=== PATIENT | female | born 1930 | race Caucasian/White ===

== ENCOUNTER 2018-03-23 13:08 | Inpatient (IN) | payer MEDICARE, BC ==
[2018-03-23] MEDS ORDERED: Sodium Chloride 0.9% 10 ML Syringe FLUSH PRN (14:13)
--- NOTE | 2018-03-23 15:32 | US ---
Right lower extremity deep venous ultrasound: Duplex and color flow imaging was obtained of the right common femoral, proximal greater saphenous, superficial femoral, popliteal, posterior tibial and peroneal veins. Left common femoral vein was also evaluated. Findings: Mild soft tissue edema is seen within the catheter. Normal phasic flow, augmentation and compression is seen. Impression: 1. No evidence of deep venous thrombosis is seen within the right lower extremity or within the left common femoral vein. 2. Mild calf edema. Diagnostic code #2
[2018-03-23] MEDS ORDERED: Sodium Chloride 0.9% 500 ML IV ONE (16:00)
--- NOTE | 2018-03-23 16:14 | EDM.PDOC ---
ED HPI GENERAL MEDICAL PROBLEM - General Chief Complaint: Cardiovascular Problem Stated Complaint: SOB/SWOLLEN/DIZZY Time Seen by Provider: 03/23/18 13:32 Source of Information: Reports: Patient, Family, RN Notes Reviewed - History of Present Illness INITIAL COMMENTS - FREE TEXT/NARRATIVE: 87-year-old female comes in with dyspnea, hypoxia, right chest and right shoulder discomfort. This has become worse today. there is pain of the right shoulder area and right upper chest with deep breathing. She is coughing quite a lot but not "getting anything up". She has had some chills but no definite fever. This has been worsening over the past week but became especially bad today. She is a former smoker having quit about 3 years ago when diagnosed with "bladder cancer". Right Neck Pain Score (Numeric/FACES): 8 - Related Data Allergies Allergy/AdvReac Type Severity Reaction Status Date / Time Cephalosporins Allergy Intermediate Hives Verified 09/19/14 19:57 cefuroxime axetil Allergy Cannot Verified 09/19/14 19:57 [From Ceftin] Remember oxycodone [Oxycodone] Allergy Nausea and Verified 09/19/14 19:57 Vomiting Home Meds: Home Meds Aspirin/Caffeine [Anacin 400-32 mg Tablet] 2 tab PO DAILY 03/23/18 [History] LORazepam 1 mg PO DAILY PRN 03/23/18 [History] Losartan/Hydrochlorothiazide [Hyzaar 100-25 Tablet] 1 each PO DAILY 03/23/18 [ History] Lutein/Minerals/Vit A,C & E [Ocuvite] 1 tab PO DAILY 03/23/18 [History] Metoprolol Succinate [Toprol Xl] 50 mg PO DAILY 03/23/18 [History] Potassium Chloride [Klor-Con Sprinkle] 10 meq PO DAILY 03/23/18 [History] Rosuvastatin [Crestor] 5 mg PO DAILY 03/23/18 [History] amLODIPine Besylate [Norvasc] 10 mg PO DAILY 03/23/18 [History] rOPINIRole HCl [Requip] 0.5 mg PO BEDTIME 03/23/18 [History] Past Medical History Cardiovascular History: Reports: High Cholesterol, Hypertension, Other (See Below) Other Cardiovascular History: carotoid stent right side Psychiatric History: Reports: Anxiety Oncologic (Cancer) History: Reports: Bladder, Other (See Below) Other Oncologic History: skin cancer to the foot; also bladder cancer since 2015 Social & Family History - Tobacco Use Smoking Status *Q: Former Smoker Used Tobacco, but Quit: Yes Month/Year Tobacco Last Used: 2014 - Caffeine Use Caffeine Use: Reports: Coffee, Tea - Recreational Drug Use Recreational Drug Use: No ED ROS GENERAL - Review of Systems Review Of Systems: See Below Constitutional: Reports: Chills. Denies: Fever HEENT: Denies: Rhinitis, Sinus Problem, Throat Pain Respiratory: Reports: Shortness of Breath, Pleuritic Chest Pain, Cough. Denies : Sputum, Hemoptysis Cardiovascular: Reports: Chest Pain (With deep breathing) GI/Abdominal: Denies: Abdominal Pain, Nausea, Vomiting Musculoskeletal: Reports: Neck Pain, Shoulder Pain (Right neck), Other (There is been swelling of her right lower leg worsening over the past several weeks). Denies: Back Pain, Leg Pain Skin: Reports: Other (She is had a small area of ulceration right foot dorsal aspect). Denies: Erythema Neurological: Denies: Numbness, Tingling ED EXAM, GENERAL - Physical Exam Exam: See Below General Appearance: Alert, Mild Distress Eye Exam: Bilateral Eye: PERRL Throat/Mouth: Normal Inspection Respiratory/Chest: Respiratory Distress. No: Rhonchi, Wheezing Cardiovascular: Regular Rate, Rhythm GI/Abdominal: Soft, Non-Tender Back Exam: No: CVA Tenderness (L), CVA Tenderness (R) Extremities: Pedal Edema (Moderate right leg swelling, no warmth or erythema), Other Neurological: Alert, Oriented, No Motor/Sensory Deficits Skin Exam: Warm, Dry, Normal Color Course - Vital Signs Last Recorded V/S: Last Vital Signs Temp 97.9 F 03/23/18 19:44 Pulse 61 03/23/18 19:45 Resp 18 03/23/18 13:24 BP 147/81 H 03/23/18 19:45 Pulse Ox 95 03/23/18 19:45 - Orders/Labs/Meds Orders: Active Orders 24 hr Category Date Time Status Oxygen Therapy [RC] ASDIRECTED Care 03/23/18 14:14 Active Peripheral IV Care [RC] Q2HR Care 03/23/18 14:15 Active Ang Chest [CT] Stat Exams 03/23/18 16:14 Taken Chest 1V Frontal [CR] Stat Exams 03/23/18 15:29 Taken Sodium Chloride 0.9% [Normal Saline] 100 ml Med 03/23/18 16:30 Active IV ASDIRECTED Sodium Chloride 0.9% [Saline Flush] Med 03/23/18 14:13 Active 10 ml FLUSH ASDIRECTED PRN Peripheral IV Insertion Adult [OM.PC] Stat Oth 03/23/18 14:14 Ordered EKG 12 Lead [EK] Stat Ther 03/23/18 13:39 Ordered Medication Orders Acetaminophen (Tylenol) 650 mg PO Q4H PRN PRN Reason: Pain (Mild 1-3)/fever Hydrocodone Bitart/Acetaminophen ([place] 325-5 Mg) 1 tab PO Q4H PRN PRN Reason: Pain (moderate 4-6) Last Admin: 03/23/18 20:12 Dose: 1 tab Albuterol/Ipratropium (Duoneb 3.0-0.5 Mg/3 Ml) 3 ml NEB Q4H PRN PRN Reason: Shortness Of Breath/wheezing Amlodipine Besylate (Norvasc) 10 mg PO DAILY YOGESH Apixaban (Eliquis) 5 mg PO BID YOGESH Apixaban (Eliquis) 10 mg PO BID YOGESH Stop: 03/30/18 21:01 Apixaban (Eliquis) 5 mg PO BID YOGESH Bisacodyl (Dulcolax) 5 mg PO DAILY PRN PRN Reason: Constipation Docusate Sodium (Colace) 100 mg PO BID PRN PRN Reason: Constipation Enoxaparin Sodium (Lovenox) 60 mg SUBCUT ONETIME ONE Stop: 03/23/18 21:01 Hydralazine HCl (Apresoline) 20 mg IVPUSH Q4H PRN PRN Reason: Hypertension Hydrochlorothiazide (Hydrochlorothiazide) 25 mg PO DAILY YOGESH Hydromorphone HCl (Dilaudid) 0.25 mg IVPUSH Q2H PRN PRN Reason: Pain (severe 7-10) Sodium Chloride (Normal Saline) 100 mls @ 60 mls/hr IV ASDIRECTED YOGESH Last Admin: 03/23/18 16:37 Dose: 60 mls/hr Promethazine HCl 6.25 mg/ (Sodium Chloride) 50.25 mls @ 100 mls/hr IV Q6H PRN PRN Reason: Nausea/Vomiting Lorazepam (Ativan) 1 mg PO DAILY PRN PRN Reason: Anxiety Lorazepam (Ativan) 2 mg IVPUSH Q4H PRN PRN Reason: Seizures Lorazepam (Ativan) 0.25 mg IV Q6H PRN PRN Reason: Anxiety Losartan Potassium (Cozaar) 100 mg PO DAILY [facility] Magnesium Sulfate (Pharmacy To Dose - Magnesium Replacement) 1 dose .XX ASDIRECTED [facility] Metoprolol Succinate (Toprol Xl) 50 mg PO DAILY [facility] Metoprolol Tartrate (Lopressor) 5 mg IVPUSH Q4H PRN PRN Reason: Tachycardia Non-Formulary Medication (Aspirin/Caffeine [Anacin 400-32 Mg Tablet]) 2 tab PO DAILY [facility] Ondansetron HCl (Zofran) 4 mg IV Q6H PRN PRN Reason: Nausea/Vomiting Polyethylene Glycol (Miralax) 17 gm PO DAILY PRN PRN Reason: Constipation Potassium Chloride (Klor-Con 10) 10 meq PO DAILY [facility] Potassium Chloride (Pharmacy To Dose - Potassium Replacement) 1 dose .XX ASDIRECTED [facility] Potassium Chloride (Klor-Con M20) 40 meq PO Q4H [facility] Stop: 03/23/18 23:31 Last Admin: 03/23/18 20:11 Dose: 40 meq Ropinirole HCl (Requip) 0.5 mg PO BEDTIME [facility] Last Admin: 03/23/18 20:10 Dose: 0.5 mg Rosuvastatin Calcium (Crestor) 5 mg PO DAILY [facility] Senna/Docusate Sodium (Senna Plus) 1 tab PO BID PRN PRN Reason: Constipation Sodium Chloride (Saline Flush) 10 ml FLUSH ASDIRECTED PRN PRN Reason: Keep Vein Open Last Admin: 03/23/18 14:34 Dose: 10 ml Temazepam (Restoril) 7.5 mg PO BEDTIME PRN PRN Reason: Sleep Vit A/Vit C/Vit E/Selen/Cu/Zn/Lutei (Icaps Mv) 1 tab PO DAILY [facility] Labs: Laboratory Tests 03/23/18 03/23/18 03/23/18 Range/Units 13:15 13:15 13:15 WBC 7.47 (3.98-10.04) K/mm3 RBC 4.66 (3.98-5.22) M/mm3 Hgb 14.1 (11.2-15.7) gm/L Hct 40.7 (34.1-44.9) % MCV 87.3 (79.4-94.8) fl MCH 30.3 (25.6-32.2) pg MCHC 34.6 (32.2-35.5) g/dl RDW Std Deviation 48.5 H (36.4-46.3) fL Plt Count 207 (182-369) K/mm3 MPV 9.6 (9.4-12.3) fl Neut % (Auto) 68.1 (34.0-71.1) % Lymph % (Auto) 21.7 (19.3-51.7) % [place] % (Auto) 9.2 (4.7-12.5) % Eos % (Auto) 0.3 L (0.7-5.8) Baso % (Auto) 0.4 (0.1-1.2) % Neut # (Auto) 5.09 (1.56-6.13) K/mm3 Lymph # (Auto) 1.62 (1.18-3.74) K/mm3 [place] # (Auto) 0.69 H (0.24-0.36) K/mm3 Eos # (Auto) 0.02 L (0.04-0.36) K/mm3 Baso # (Auto) 0.03 (0.01-0.08) K/mm3 PT (9.5-12.1) SECONDS INR D-Dimer, Quantitative 3.28 H (0.19-0.50) mg/L Sodium (136-145) mEq/L Potassium (3.5-5.1) mEq/L Chloride (98-107) mEq/L Carbon Dioxide (21-32) mEq/L Anion Gap (5-15) BUN (7-18) mg/dL Creatinine (0.55-1.02) mg/dL Est Cr Clr Drug Dosing mL/min Estimated GFR (MDRD) (>60) mL/min BUN/Creatinine Ratio (14-18) Glucose (83-115) mg/dL Calcium (8.5-10.1) mg/dL Total Bilirubin (0.2-1.0) mg/dL AST (15-37) U/L ALT (14-59) U/L Alkaline Phosphatase (46-116) U/L Troponin I (0.00-0.056) ng/mL C-Reactive Protein 1.9 H* (<1.0) mg/dL NT-Pro-B Natriuret Pep (0-450) pg/mL Total Protein (6.4-8.2) g/dl Albumin (3.4-5.0) g/dl Globulin gm/dL Albumin/Globulin Ratio (1-2) 03/23/18 03/23/18 03/23/18 Range/Units 13:15 13:15 13:15 WBC (3.98-10.04) K/mm3 RBC (3.98-5.22) M/mm3 Hgb (11.2-15.7) gm/L Hct (34.1-44.9) % MCV (79.4-94.8) fl MCH (25.6-32.2) pg MCHC (32.2-35.5) g/dl RDW Std Deviation (36.4-46.3) fL Plt Count (182-369) K/mm3 MPV (9.4-12.3) fl Neut % (Auto) (34.0-71.1) % Lymph % (Auto) (19.3-51.7) % [place] % (Auto) (4.7-12.5) % Eos % (Auto) (0.7-5.8) Baso % (Auto) (0.1-1.2) % Neut # (Auto) (1.56-6.13) K/mm3 Lymph # (Auto) (1.18-3.74) K/mm3 [place] # (Auto) (0.24-0.36) K/mm3 Eos # (Auto) (0.04-0.36) K/mm3 Baso # (Auto) (0.01-0.08) K/mm3 PT 12.5 H (9.5-12.1) SECONDS INR 1.15 D-Dimer, Quantitative (0.19-0.50) mg/L Sodium 131 L (136-145) mEq/L Potassium 3.4 L (3.5-5.1) mEq/L Chloride 96 L (98-107) mEq/L Carbon Dioxide 19 L (21-32) mEq/L Anion Gap 19.4 H (5-15) BUN 34 H (7-18) mg/dL Creatinine 1.1 H (0.55-1.02) mg/dL Est Cr Clr Drug Dosing 31.81 mL/min Estimated GFR (MDRD) 47 (>60) mL/min BUN/Creatinine Ratio 30.9 H (14-18) Glucose 108 (83-115) mg/dL Calcium 8.9 (8.5-10.1) mg/dL Total Bilirubin 1.1 H (0.2-1.0) mg/dL AST 47 H (15-37) U/L ALT 44 (14-59) U/L Alkaline Phosphatase 98 (46-116) U/L Troponin I 0.064 H* (0.00-0.056) ng/mL C-Reactive Protein (<1.0) mg/dL NT-Pro-B Natriuret Pep 2757 H (0-450) pg/mL Total Protein 6.8 (6.4-8.2) g/dl Albumin 3.2 L (3.4-5.0) g/dl Globulin 3.6 gm/dL Albumin/Globulin Ratio 0.9 L (1-2) Meds: Medications Generic Name Dose Route Start Last Admin Trade Name Freq PRN Reason Stop Dose Admin Acetaminophen 650 mg 03/23/18 19:07 Tylenol PO Q4H PRN Pain (Mild 1-3)/fever Hydrocodone Bitart/Acetaminophen 1 tab 03/23/18 19:07 03/23/18 20:12 [place] 325-5 Mg PO 1 tab Q4H PRN Administration Pain (moderate 4-6) Albuterol/Ipratropium 3 ml 03/23/18 19:07 Duoneb 3.0-0.5 Mg/3 Ml NEB Q4H PRN Shortness Of Breath/wheezing Amlodipine Besylate 10 mg 03/24/18 09:00 Norvasc PO DAILY YOGESH Apixaban 5 mg 03/31/18 09:00 Eliquis PO BID YOGESH Apixaban 10 mg 03/24/18 09:00 Eliquis PO 03/30/18 21:01 BID YOGESH Apixaban 5 mg 03/31/18 09:00 Eliquis PO BID YOGESH Bisacodyl 5 mg 03/23/18 19:07 Dulcolax PO DAILY PRN Constipation Docusate Sodium 100 mg 03/23/18 19:07 Colace PO BID PRN Constipation Enoxaparin Sodium 60 mg 03/23/18 21:00 Lovenox SUBCUT 03/23/18 21:01 ONETIME ONE Hydralazine HCl 20 mg 03/23/18 19:04 Apresoline IVPUSH Q4H PRN Hypertension Hydrochlorothiazide 25 mg 03/24/18 09:00 Hydrochlorothiazide PO DAILY YOGESH Hydromorphone HCl 0.25 mg 03/23/18 19:07 Dilaudid IVPUSH Q2H PRN Pain (severe 7-10) Sodium Chloride 100 mls @ 60 mls/hr 03/23/18 16:30 03/23/18 16:37 Normal Saline IV 60 mls/hr ASDIRECTED [facility] Administration Promethazine HCl 6.25 mg/ 50.25 mls @ 100 mls/hr 03/23/18 19:07 Sodium Chloride IV Q6H PRN Nausea/Vomiting Lorazepam 1 mg 03/23/18 19:03 Ativan PO DAILY PRN Anxiety Lorazepam 2 mg 03/23/18 19:04 Ativan IVPUSH Q4H PRN Seizures Lorazepam 0.25 mg 03/23/18 19:07 Ativan IV Q6H PRN Anxiety Losartan Potassium 100 mg 03/24/18 09:00 Cozaar PO DAILY [facility] Magnesium Sulfate 1 dose 03/23/18 19:15 Pharmacy To Dose - Magnesium Replacement .XX ASDIRECTED [facility] Metoprolol Succinate 50 mg 03/24/18 09:00 Toprol Xl PO DAILY [facility] Metoprolol Tartrate 5 mg 03/23/18 19:04 Lopressor IVPUSH Q4H PRN Tachycardia Non-Formulary Medication 2 tab 03/24/18 09:00 Aspirin/Caffeine [Anacin 400-32 Mg Tablet] PO DAILY [facility] Ondansetron HCl 4 mg 03/23/18 19:07 Zofran IV Q6H PRN Nausea/Vomiting Polyethylene Glycol 17 gm 03/23/18 19:07 Miralax PO DAILY PRN Constipation Potassium Chloride 10 meq 03/24/18 09:00 Klor-Con 10 PO DAILY [facility] Potassium Chloride 1 dose 03/23/18 19:15 Pharmacy To Dose - Potassium Replacement .XX ASDIRECTED [facility] Potassium Chloride 40 meq 03/23/18 19:30 03/23/18 20:11 Klor-Con M20 PO 03/23/18 23:31 40 meq Q4H YOGESH Administration Ropinirole HCl 0.5 mg 03/23/18 21:00 03/23/18 20:10 Requip PO 0.5 mg BEDTIME YOGESH Administration Rosuvastatin Calcium 5 mg 03/24/18 09:00 Crestor PO DAILY YOGESH Senna/Docusate Sodium 1 tab 03/23/18 19:07 Senna Plus PO BID PRN Constipation Sodium Chloride 10 ml 03/23/18 14:13 03/23/18 14:34 Saline Flush FLUSH 10 ml ASDIRECTED PRN Administration Keep Vein Open Temazepam 7.5 mg 03/23/18 19:07 Restoril PO BEDTIME PRN Sleep Vit A/Vit C/Vit E/Selen/Cu/Zn/Lutei 1 tab 03/24/18 09:00 Icaps Mv PO DAILY YOGESH Discontinued Medications Generic Name Dose Route Start Last Admin Trade Name Freq PRN Reason Stop Dose Admin Apixaban 10 mg 03/23/18 21:00 Eliquis PO 03/30/18 09:01 BID YOGESH Apixaban 10 mg 03/24/18 21:00 Eliquis PO 03/31/18 09:01 BID YOGESH Sodium Chloride 500 mls @ 999 mls/hr 03/23/18 16:00 03/23/18 16:44 Normal Saline IV 03/23/18 16:30 999 mls/hr .BOLUS ONE Administration Iopamidol 100 ml 03/23/18 16:19 03/23/18 16:37 Isovue-370 (76%) IVPUSH 03/23/18 16:20 80 ml ONETIME ONE Administration Sodium Chloride 10 ml 03/23/18 16:19 03/23/18 16:37 Saline Flush FLUSH 03/23/18 16:20 10 ml ONETIME ONE Administration - Re-Assessments/Exams Free Text/Narrative Re-Assessment/Exam: 03/23/18 18:17 Chest x-ray did show right pleural effusion no apparent infiltrate, moderate cardiomegaly, d-dimer did come back elevated. Ultrasound of right lower leg was negative for DVT. CT pulmonary angiogram has been done with multiple abnormal findings including filling defect middle lobe segmental pulmonary artery on the right. Also quite marked dilatation of the right atrium noted, also progressive interval enlargement of a nodule left upper lobe. See radiology report for details. I discussed this with Dr. Fernandez our Hospitalist who will see patient at this time. Departure - Departure Time of Disposition: 18:00 Disposition: Admitted As Inpatient 65 Condition: Serious Clinical Impression: Hypoxia Pulmonary embolism Qualifiers: Pulmonary embolism type: other Chronicity: acute COPD (chronic obstructive pulmonary disease) Qualifiers: COPD type: unspecified COPD Qualified Code(s): J44.9 - Chronic obstructive pulmonary disease, unspecified ED Communication - Discussed Case With (1) Discussed Case With (1): Admitting Provider (Dr Fernandez, decision to admit at about 18:15.) - My Orders Last 24 Hours: My Active Orders 03/23/18 13:39 EKG 12 Lead [EK] Stat 03/23/18 14:13 Sodium Chloride 0.9% [Saline Flush] 10 ml FLUSH ASDIRECTED PRN 03/23/18 14:14 Oxygen Therapy [RC] ASDIRECTED Peripheral IV Insertion Adult [OM.PC] Stat 03/23/18 14:15 Peripheral IV Care [RC] Q2HR 03/23/18 15:29 Chest 1V Frontal [CR] Stat 03/23/18 16:14 Ang Chest [CT] Stat 03/23/18 16:30 Sodium Chloride 0.9% [Normal Saline] 100 ml IV ASDIRECTED - Assessment/Plan Last 24 Hours: My Active Orders 03/23/18 13:39 EKG 12 Lead [EK] Stat 03/23/18 14:13 Sodium Chloride 0.9% [Saline Flush] 10 ml FLUSH ASDIRECTED PRN 03/23/18 14:14 Oxygen Therapy [RC] ASDIRECTED Peripheral IV Insertion Adult [OM.PC] Stat 03/23/18 14:15 Peripheral IV Care [RC] Q2HR 03/23/18 15:29 Chest 1V Frontal [CR] Stat 03/23/18 16:14 Ang Chest [CT] Stat 03/23/18 16:30 Sodium Chloride 0.9% [Normal Saline] 100 ml IV ASDIRECTED
[2018-03-23] MEDS ORDERED: Iopamidol 755 Mg/ML 100 ML Bottle IVPUSH ONE (16:19)
[2018-03-23] MEDS ORDERED: Sodium Chloride 0.9% 10 ML Syringe FLUSH ONE (16:19)
[2018-03-23] MEDS ORDERED: Sodium Chloride 0.9% 100 ML IV SCH (16:30)
[2018-03-23] MEDS ORDERED: hydrALAZINE 20 MG/ML SDV IVPUSH PRN (19:04)
[2018-03-23] MEDS ORDERED: LORazepam 2 MG/ML SDV IVPUSH PRN (19:04)
[2018-03-23] MEDS ORDERED: Metoprolol Tartrate 5 MG/5 ML SDV IVPUSH PRN (19:04)
[2018-03-23] MEDS ORDERED: Bisacodyl 5 MG Tab PO PRN (19:07)
[2018-03-23] MEDS ORDERED: HYDROmorphone 0.5 MG/0.5 ML SYRINGE IVPUSH PRN (19:07)
[2018-03-23] MEDS ORDERED: LORazepam 2 MG/ML SDV IV PRN (19:07)
[2018-03-23] MEDS ORDERED: Albuterol/Ipratropium 3.0-0.5 MG/3 ML Neb Soln NEB PRN (19:07)
[2018-03-23] MEDS ORDERED: Promethazine 6.25 MG in Sodium Chloride 0.9% 50 ML IV PRN (19:07)
[2018-03-23] MEDS ORDERED: Acetaminophen 325 MG Tab PO PRN (19:07)
[2018-03-23] MEDS ORDERED: Docusate Sodium 100 MG Cap PO PRN (19:07)
[2018-03-23] MEDS ORDERED: Ondansetron 4 MG/2 ML SDV IV PRN (19:07)
[2018-03-23] MEDS ORDERED: Polyethylene Glycol 3350 Powder 17 GM Packet PO PRN (19:07)
[2018-03-23] MEDS ORDERED: Temazepam 7.5 MG Cap PO PRN (19:07)
--- NOTE | 2018-03-23 19:53 | PCM.HP ---
H&P History of Present Illness - General Date of Service: 03/23/18 Admit Problem/Dx: Admission Diagnosis/Problem Admission Diagnosis/Problem Pulmonary embolism Source of Information: Patient, Family, Provider, RN Notes Reviewed History Limitations: Reports: Respiratory Distress - History of Present Illness Initial Comments - Free Text/Narative: This is an 87 yo elderly white female with past medical hx/o HTN, HLD, Carotid Stenosis S/p Stent Placement, Hx/o Bladder CA, Hx/o Skin CA S/p Surgical Resection, Chronic Leg Edema and Emphysema with hx/o Smoking who comes in with complaints of worsening dyspnea, hypoxia, dry cough, and pleuritic pain with radiation to the right shoulder. She denies any fever but reports some chills. She states her symptoms have been getting worse in the past week but worse today. Patient carries a history of smoking cigarettes but quit 3 years ago when she was diagnosed with bladder cancer. Recently, she underwent surgical resection of a skin cancer on her lower extremity. Her initial workup in the emergency department shows a fairly unremarkable CBC. Her coagulation studies however show PT of 12.5, INR of 1.15, and d-dimer of 3.28. Her chemistry is significant for sodium of 34, creatinine of 1.1, total bilirubin of 1.1, AST of 47, initial troponin of 0.064, CRP of 1.9, proBNP of 2757, and albumin of 3.2. Her duplex ultrasound studies show no evidence of deep venous the within the right lower extremity or within the left common femoral vein. Mild calf edema noted. Her chest CT scan report reads interval development of a moderate right and small left pleural effusion. Filling defect in the middle lobe segmental pulmonary artery. Marked dilatation of the right atrium measuring 9 cm in the maximum diameter. No significant dilatation of the right ventricle. Contrast flexures into a dilated IVC and hepatic veins as well as the SVC and tributaries. Progressive fibrotic change both apices. Progressive changes of centrilobular emphysema and Minimal interval enlargement of a nodule in the left upper lobe. Patient is being admitted primarily for medical treatment of PE and Acute Congestive Heart Failure. She is DNR/DNI. Right Neck Pain Score (Numeric/FACES): 8 - Related Data Allergies/Adverse Reactions: Allergies Allergy/AdvReac Type Severity Reaction Status Date / Time Cephalosporins Allergy Intermediate Hives Verified 02/20/15 19:57 cefuroxime axetil Allergy Cannot Verified 09/19/14 19:57 [From Ceftin] Remember oxycodone [Oxycodone] Allergy Nausea and Verified 09/19/14 19:57 Vomiting Home Medications: Home Meds Aspirin/Caffeine [Anacin 400-32 mg Tablet] 2 tab PO DAILY 03/23/18 [History] LORazepam 1 mg PO DAILY PRN 03/23/18 [History] Losartan/Hydrochlorothiazide [Hyzaar 100-25 Tablet] 1 each PO DAILY 03/23/18 [ History] Lutein/Minerals/Vit A,C & E [Ocuvite] 1 tab PO DAILY 03/23/18 [History] Metoprolol Succinate [Toprol Xl] 50 mg PO DAILY 03/23/18 [History] Potassium Chloride [Klor-Con Sprinkle] 10 meq PO DAILY 03/23/18 [History] Rosuvastatin [Crestor] 5 mg PO DAILY 03/23/18 [History] amLODIPine Besylate [Norvasc] 10 mg PO DAILY 03/23/18 [History] rOPINIRole HCl [Requip] 0.5 mg PO BEDTIME 03/23/18 [History] Doxycycline [Vibramycin] 1 tab PO BID 03/24/18 [History] Past Medical History Cardiovascular History: Reports: High Cholesterol, Hypertension, Other (See Below) Other Cardiovascular History: carotoid stent right side Psychiatric History: Reports: Anxiety Oncologic (Cancer) History: Reports: Bladder, Other (See Below) Other Oncologic History: skin cancer to the foot; also bladder cancer since 2014 Social & Family History - Tobacco Use Smoking Status *Q: Former Smoker Used Tobacco, but Quit: Yes Month/Year Tobacco Last Used: 2014 - Caffeine Use Caffeine Use: Reports: Coffee, Tea - Recreational Drug Use Recreational Drug Use: No H&P Review of Systems - Review of Systems: Review Of Systems: ROS reveals no pertinent complaints other than HPI. Exam - Exam Exam: See Below - Vital Signs Vital Signs: Last Vital Signs Temp 36.9 C 03/23/18 13:24 Pulse 62 03/23/18 13:24 Resp 18 03/23/18 13:24 BP 152/77 H 03/23/18 13:24 Pulse Ox 94 L 03/23/18 18:30 Weight: 63.503 kg - Exam Quality Assessment: Supplemental Oxygen General: Alert, Cooperative, Other (Comfortable). No: Mild Distress HEENT: Conjunctiva Clear, EOMI, Hearing Intact, Mucosa Moist & [place], Nares Patent, Normal Nasal Septum, Posterior Pharynx Clear, Pupils Equal, Pupils Reactive Neck: Supple, Trachea Midline, +2 Carotid Pulse wo Bruit. No: Thyromegaly Lungs: Normal Respiratory Effort, Decreased Breath Sounds (on the bases R>>L) Cardiovascular: Regular Rate, Regular Rhythm GI/Abdominal Exam: Normal Bowel Sounds, Soft, Non-Tender, No Organomegaly, No Distention, No Abnormal Bruit (Female) Exam: Deferred Rectal (Female) Exam: Deferred Back Exam: Normal Inspection, Decreased Range of Motion Extremities: Normal Inspection, Normal Range of Motion, Non-Tender, Normal Capillary Refill, Other (leg edema). No: Slow Capillary Refill, Arm Pain, Mojgan 's Sign, Leg Pain, Limited Range of Motion, Increased Warmth, Mottled, Pallor, Redness Peripheral Pulses: 2+: Posterior Tibial (L), Posterior Tibial (R), Dorsalis Pedis (L), Dorsalis Pedis (R) Skin: Warm, Dry, Intact Neuro Extensive - Mental Status: Oriented x3, Normal Cognition, Memory Intact Neuro Extensive - Motor, Sensory, Reflexes: CN II-XII Intact (limited due to pain/discomfort but otherwise grossly intact). No: Abnormal Gait Psychiatric: Alert, Normal Affect, Normal Mood - Patient Data Lab Results Last 24 hrs: Laboratory Results - last 24 hr 03/23/18 03/23/18 03/23/18 Range/Units 13:15 13:15 13:15 WBC 7.47 (3.98-10.04) K/mm3 RBC 4.66 (3.98-5.22) M/mm3 Hgb 14.1 (11.2-15.7) gm/L Hct 40.7 (34.1-44.9) % MCV 87.3 (79.4-94.8) fl MCH 30.3 (25.6-32.2) pg MCHC 34.6 (32.2-35.5) g/dl RDW Std Deviation 48.5 H (36.4-46.3) fL Plt Count 207 (182-369) K/mm3 MPV 9.6 (9.4-12.3) fl Neut % (Auto) 68.1 (34.0-71.1) % Lymph % (Auto) 21.7 (19.3-51.7) % [place] % (Auto) 9.2 (4.7-12.5) % Eos % (Auto) 0.3 L (0.7-5.8) Baso % (Auto) 0.4 (0.1-1.2) % Neut # (Auto) 5.09 (1.56-6.13) K/mm3 Lymph # (Auto) 1.62 (1.18-3.74) K/mm3 [place] # (Auto) 0.69 H (0.24-0.36) K/mm3 Eos # (Auto) 0.02 L (0.04-0.36) K/mm3 Baso # (Auto) 0.03 (0.01-0.08) K/mm3 PT (9.5-12.1) SECONDS INR D-Dimer, Quantitative 3.28 H (0.19-0.50) mg/L Sodium (136-145) mEq/L Potassium (3.5-5.1) mEq/L Chloride (98-107) mEq/L Carbon Dioxide (21-32) mEq/L Anion Gap (5-15) BUN (7-18) mg/dL Creatinine (0.55-1.02) mg/dL Est Cr Clr Drug Dosing mL/min Estimated GFR (MDRD) (>60) mL/min BUN/Creatinine Ratio (14-18) Glucose (83-115) mg/dL Calcium (8.5-10.1) mg/dL Total Bilirubin (0.2-1.0) mg/dL AST (15-37) U/L ALT (14-59) U/L Alkaline Phosphatase (46-116) U/L Troponin I (0.00-0.056) ng/mL C-Reactive Protein 1.9 H* (<1.0) mg/dL NT-Pro-B Natriuret Pep (0-450) pg/mL Total Protein (6.4-8.2) g/dl Albumin (3.4-5.0) g/dl Globulin gm/dL Albumin/Globulin Ratio (1-2) 03/23/18 03/23/18 03/23/18 Range/Units 13:15 13:15 13:15 WBC (3.98-10.04) K/mm3 RBC (3.98-5.22) M/mm3 Hgb (11.2-15.7) gm/L Hct (34.1-44.9) % MCV (79.4-94.8) fl MCH (25.6-32.2) pg MCHC (32.2-35.5) g/dl RDW Std Deviation (36.4-46.3) fL Plt Count (182-369) K/mm3 MPV (9.4-12.3) fl Neut % (Auto) (34.0-71.1) % Lymph % (Auto) (19.3-51.7) % [place] % (Auto) (4.7-12.5) % Eos % (Auto) (0.7-5.8) Baso % (Auto) (0.1-1.2) % Neut # (Auto) (1.56-6.13) K/mm3 Lymph # (Auto) (1.18-3.74) K/mm3 [place] # (Auto) (0.24-0.36) K/mm3 Eos # (Auto) (0.04-0.36) K/mm3 Baso # (Auto) (0.01-0.08) K/mm3 PT 12.5 H (9.5-12.1) SECONDS INR 1.15 D-Dimer, Quantitative (0.19-0.50) mg/L Sodium 131 L (136-145) mEq/L Potassium 3.4 L (3.5-5.1) mEq/L Chloride 96 L (98-107) mEq/L Carbon Dioxide 19 L (21-32) mEq/L Anion Gap 19.4 H (5-15) BUN 34 H (7-18) mg/dL Creatinine 1.1 H (0.55-1.02) mg/dL Est Cr Clr Drug Dosing 31.81 mL/min Estimated GFR (MDRD) 47 (>60) mL/min BUN/Creatinine Ratio 30.9 H (14-18) Glucose 108 (83-115) mg/dL Calcium 8.9 (8.5-10.1) mg/dL Total Bilirubin 1.1 H (0.2-1.0) mg/dL AST 47 H (15-37) U/L ALT 44 (14-59) U/L Alkaline Phosphatase 98 (46-116) U/L Troponin I 0.064 H* (0.00-0.056) ng/mL C-Reactive Protein (<1.0) mg/dL NT-Pro-B Natriuret Pep 2757 H (0-450) pg/mL Total Protein 6.8 (6.4-8.2) g/dl Albumin 3.2 L (3.4-5.0) g/dl Globulin 3.6 gm/dL Albumin/Globulin Ratio 0.9 L (1-2) Result Diagrams: 03/24/18 06:55 03/24/18 06:55 Problem List Initiated/Reviewed/Updated: Yes Orders Last 24hrs: Active Orders 24 hr Category Date Time Status Admission Status [Patient Status] [ADT] Routine ADT 03/23/18 18:22 Active Height and Weight [RC] DAILY Care 03/23/18 19:07 Active Incentive Spirometry [RT Incentive Spirometry] [RC] Care 03/23/18 19:10 Active Q2HWA Intake and Output [RC] QSHIFT Care 03/23/18 19:08 Active Oxygen Therapy [RC] ASDIRECTED Care 03/23/18 14:14 Active Oxygen Therapy [RC] PRN Care 03/23/18 19:07 Active Peripheral IV Care [RC] Q2HR Care 03/23/18 14:15 Active Pulse Oximetry [RC] PRN Care 03/23/18 19:08 Active RT Aerosol Therapy [RC] ASDIRECTED Care 03/23/18 19:09 Active Up With Assistance [RC] ASDIRECTED Care 03/23/18 19:07 Active Up ad Neetu [RC] ASDIRECTED Care 03/23/18 19:07 Active VTE/DVT Education [RC] PER UNIT ROUTINE Care 03/23/18 19:07 Active Vital Signs [RC] Q4H Care 03/23/18 19:07 Active Consult to Case Management [CONS] Routine Cons 03/23/18 19:07 Active Consult to Ux Specialist [CONS] Routine Cons 03/23/18 19:07 Active Consult to Spiritual Care [CONS] Routine Cons 03/23/18 19:07 Active Respiratory Care Assess and Treatment [CONS] Routine Cons 03/23/18 19:07 Active Regular Diet [DIET] Diet 03/23/18 Dinner Active Ang Chest [CT] Stat Exams 03/23/18 16:14 Taken Chest 1V Frontal [CR] Stat Exams 03/23/18 15:29 Taken BASIC METABOLIC PANEL,BMP [CHEM] AM Lab 03/24/18 05:11 Ordered BASIC METABOLIC PANEL,BMP [CHEM] AM Lab 03/25/18 05:11 Ordered BASIC METABOLIC PANEL,BMP [CHEM] AM Lab 03/26/18 05:11 Ordered CBC WITH AUTO DIFF [HEME] AM Lab 03/24/18 05:11 Ordered MAGNESIUM [CHEM] AM Lab 03/24/18 05:11 Ordered MAGNESIUM [CHEM] AM Lab 03/25/18 05:11 Ordered MAGNESIUM [CHEM] AM Lab 03/26/18 05:11 Ordered Acetaminophen [Tylenol] Med 03/23/18 19:07 Active 650 mg PO Q4H PRN Acetaminophen/HYDROcodone [[place] 325-5 MG] Med 03/23/18 19:07 Active 1 tab PO Q4H PRN Albuterol/Ipratropium [DuoNeb 3.0-0.5 MG/3 ML] Med 03/23/18 19:07 Active 3 ml NEB Q4H PRN Apixaban [Eliquis] Med 03/23/18 21:00 Active 10 mg PO BID Apixaban [Eliquis] Med 03/30/18 21:00 Active 5 mg PO BID Aspirin/Caffeine [Anacin 400-32 mg Tablet] Med 03/24/18 09:00 Pending 2 tab PO DAILY Bisacodyl [Dulcolax] Med 03/23/18 19:07 Active 5 mg PO DAILY PRN Docusate Sodium [Colace] Med 03/23/18 19:07 Active 100 mg PO BID PRN Docusate Sodium/Sennosides [Senna Plus] Med 03/23/18 19:07 Active 1 tab PO BID PRN HYDROmorphone [Dilaudid] Med 03/23/18 19:07 Active 0.25 mg IVPUSH Q2H PRN LORazepam [Ativan] Med 03/23/18 19:07 Active 0.25 mg IV Q6H PRN LORazepam [Ativan] Med 03/23/18 19:03 Active 1 mg PO DAILY PRN LORazepam [Ativan] Med 03/23/18 19:04 Active 2 mg IVPUSH Q4H PRN Losartan [Cozaar] Med 03/24/18 09:00 Active 100 mg PO DAILY Magnesium Rep Pharmacy to Dose [Pharmacy to Dose - Med 03/23/18 19:15 Pending Magnesium Replacement] 1 dose .XX ASDIRECTED Metoprolol Succinate [Toprol XL] Med 03/24/18 09:00 Active 50 mg PO DAILY Metoprolol Tartrate [Lopressor] Med 03/23/18 19:04 Active 5 mg IVPUSH Q4H PRN Multivitamins/Min/FA/Lut/Zeax [ICaps MV] Med 03/24/18 09:00 Active 1 tab PO DAILY Ondansetron [Zofran] Med 03/23/18 19:07 Active 4 mg IV Q6H PRN Polyethylene Glycol 3350 [MiraLAX] Med 03/23/18 19:07 Active 17 gm PO DAILY PRN Potassium Chloride [Klor-Con 10] Med 03/24/18 09:00 Active 10 meq PO DAILY Potassium Chloride [Klor-Con M20] Med 03/23/18 19:30 Active 40 meq PO Q4H Potassium Rep Pharmacy to Dose [Pharmacy to Dose - Med 03/23/18 19:15 Pending Potassium Replacement] 1 dose .XX ASDIRECTED Promethazine [Phenergan] 6.25 mg Med 03/23/18 19:07 Active Sodium Chloride 0.9% [Normal Saline] 50 ml IV Q6H Rosuvastatin [Crestor] Med 03/24/18 09:00 Active 5 mg PO DAILY Sodium Chloride 0.9% [Normal Saline] 100 ml Med 03/23/18 16:30 Active IV ASDIRECTED Sodium Chloride 0.9% [Saline Flush] Med 03/23/18 14:13 Active 10 ml FLUSH ASDIRECTED PRN Temazepam [Restoril] Med 03/23/18 19:07 Active 7.5 mg PO BEDTIME PRN amLODIPine [Norvasc] Med 03/24/18 09:00 Active 10 mg PO DAILY hydrALAZINE [Apresoline] Med 03/23/18 19:04 Active 20 mg IVPUSH Q4H PRN hydroCHLOROthiazide Med 03/24/18 09:00 Active 25 mg PO DAILY rOPINIRole [Requip] Med 03/23/18 21:00 Active 0.5 mg PO BEDTIME Peripheral IV Insertion Adult [OM.PC] Stat Oth 03/23/18 14:14 Ordered Resuscitation Status Routine Resus Stat 03/23/18 19:07 Ordered EKG 12 Lead [EK] Stat Ther 03/23/18 13:39 Ordered Medication Orders Acetaminophen (Tylenol) 650 mg PO Q4H PRN PRN Reason: Pain (Mild 1-3)/fever Hydrocodone Bitart/Acetaminophen ([place] 325-5 Mg) 1 tab PO Q4H PRN PRN Reason: Pain (moderate 4-6) Albuterol/Ipratropium (Duoneb 3.0-0.5 Mg/3 Ml) 3 ml NEB Q4H PRN PRN Reason: Shortness Of Breath/wheezing Amlodipine Besylate (Norvasc) 10 mg PO DAILY [facility] Apixaban (Eliquis) 10 mg PO BID [facility] Stop: 03/30/18 09:01 Apixaban (Eliquis) 5 mg PO BID [facility] Bisacodyl (Dulcolax) 5 mg PO DAILY PRN PRN Reason: Constipation Docusate Sodium (Colace) 100 mg PO BID PRN PRN Reason: Constipation Hydralazine HCl (Apresoline) 20 mg IVPUSH Q4H PRN PRN Reason: Hypertension Hydrochlorothiazide (Hydrochlorothiazide) 25 mg PO DAILY [facility] Hydromorphone HCl (Dilaudid) 0.25 mg IVPUSH Q2H PRN PRN Reason: Pain (severe 7-10) Sodium Chloride (Normal Saline) 100 mls @ 60 mls/hr IV ASDIRECTED [facility] Last Admin: 03/23/18 16:37 Dose: 60 mls/hr Promethazine HCl 6.25 mg/ (Sodium Chloride) 50.25 mls @ 100 mls/hr IV Q6H PRN PRN Reason: Nausea/Vomiting Lorazepam (Ativan) 1 mg PO DAILY PRN PRN Reason: Anxiety Lorazepam (Ativan) 2 mg IVPUSH Q4H PRN PRN Reason: Seizures Lorazepam (Ativan) 0.25 mg IV Q6H PRN PRN Reason: Anxiety Losartan Potassium (Cozaar) 100 mg PO DAILY [facility] Magnesium Sulfate (Pharmacy To Dose - Magnesium Replacement) 1 dose .XX ASDIRECTED [facility] Metoprolol Succinate (Toprol Xl) 50 mg PO DAILY [facility] Metoprolol Tartrate (Lopressor) 5 mg IVPUSH Q4H PRN PRN Reason: Tachycardia Non-Formulary Medication (Aspirin/Caffeine [Anacin 400-32 Mg Tablet]) 2 tab PO DAILY [facility] Ondansetron HCl (Zofran) 4 mg IV Q6H PRN PRN Reason: Nausea/Vomiting Polyethylene Glycol (Miralax) 17 gm PO DAILY PRN PRN Reason: Constipation Potassium Chloride (Klor-Con 10) 10 meq PO DAILY [facility] Potassium Chloride (Pharmacy To Dose - Potassium Replacement) 1 dose .XX ASDIRECTED [facility] Potassium Chloride (Klor-Con M20) 40 meq PO Q4H [facility] Stop: 03/23/18 23:31 Ropinirole HCl (Requip) 0.5 mg PO BEDTIME [facility] Rosuvastatin Calcium (Crestor) 5 mg PO DAILY [facility] Senna/Docusate Sodium (Senna Plus) 1 tab PO BID PRN PRN Reason: Constipation Sodium Chloride (Saline Flush) 10 ml FLUSH ASDIRECTED PRN PRN Reason: Keep Vein Open Last Admin: 03/23/18 14:34 Dose: 10 ml Temazepam (Restoril) 7.5 mg PO BEDTIME PRN PRN Reason: Sleep Vit A/Vit C/Vit E/Selen/Cu/Zn/Lutei (Icaps Mv) 1 tab PO DAILY [facility] Assessment/Plan Comment:: Assessment/Plan: Acute: Pulmonary Embolism - Risk factor underlying malignancy (makes her hypercoagulable) - D-Dimer is 3.28 - 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 - Chest CT scan Filing Defect in the Middle Lobe Segmental Pulmonary Artery - Duplex U/S shows negative for DVT - Offered traditional vs novel anticoagulant--> after weighing risk and benefits; she wasnt to be on NOACS; she okayed eliquis which we will start in AM after the procedure - Will cover her for lovenox subQ for now for planned thoracensis in AM Heart Failure - No known hx/o of it but clinical signs: b/l pleural effusion, shortness of breath, leg edema and elevated BNP level og 2757 - CT scan confirms right sided heart failure: marked dilation of right atrium measuring 9 cm in max diameter, cardiomegaly, contrast refluxes into a dilated inferior vena cava and heaptic veins as well as the superior vena cava and tributaries - Hear failure protocol: diuretics, Is/Os, strict fluid/salt restrictions and daily weight check - 2D echo and thyroid panel in AM B/L Pleural Effusion - R>>L - Suspect 2/2 Heart Failure +/- Malignancy - Offered therapeutic and diagnostic thoracetesis- agreed--> will perform it in AM - Showed CT scan Image and You tube Thoracentesis Procedure to her and Niece at bedside - Supportive Care and Supplemental O2 Hypokalemia, Mild - K 3.4 - Replete and monitor Slightly Elevated Troponin Level - Troponin 0.064 - 2/2 heart strain - Will monitor Minimal Interval Change of a Nodule in the Left Upper Lobe - Chest CT scan finding Chronic: HTN HLD Carotid Stenosis S/p Stent Placement Hx/o Bladder CA Hx/o Skin CA S/p Surgical Resection Progressive Changes of Centrilobular Emphysema with hx/o Smoking Plan: Admit to [facility] Resume Home Meds Routine AM Labs PT/OT/RT consult Fall Precautions Sleep upright for now SW/CM for d/c planning Thoracentesis in AM Additional orders as above Code status: DNR/DNI Spoke to Gayathri (niece) with patient's permission. I updated Gayathri about Gosia' s diagnoses, treatment plan and clinical status at this time.
[2018-03-23] MEDS: rOPINIRole 0.25 MG Tab PO SCH (20:10)
[2018-03-23] MEDS: Potassium Chloride 20 MEQ Tab.ER PO SCH ×2 (20:11→22:30)
[2018-03-23] MEDS: Acetaminophen/HYDROcodone 325-5 MG Tab PO PRN (20:12)
[2018-03-23] MEDS ORDERED: Apixaban 5 MG Tab PO SCH (21:00)
[2018-03-23] MEDS ORDERED: Enoxaparin 60 MG/0.6 ML Syringe SUBCUT ONE (21:00)
[2018-03-23] MEDS: LORazepam 1 MG Tab PO PRN (22:31)
[2018-03-24 08:14] LABS: VITAMIN D,25-HYDROXY 28.3 ng/ml (30.0-100.0)
[2018-03-24] MEDS ORDERED: HYDROmorphone 0.5 MG/0.5 ML Syringe IVPUSH PRN (08:45)
[2018-03-24] MEDS ORDERED: CAFFEINE PO SCH (09:00)
[2018-03-24] MEDS ORDERED: ASPIRIN PO SCH (09:00)
[2018-03-24] MEDS: amLODIPine 10 MG Tab PO SCH (09:07)
[2018-03-24] MEDS: Hydrochlorothiazide 25 MG Tab PO SCH (09:07)
[2018-03-24] MEDS: Multivitamins with Minerals/Folic Acid/Lutein/Zeaxanth Tab PO SCH (09:07)
[2018-03-24] MEDS: Losartan 100 MG Tab PO SCH (09:08)
[2018-03-24] MEDS: Rosuvastatin 10 MG Tab PO SCH (09:08)
[2018-03-24] MEDS: Potassium Chloride 10 MEQ Tab.ER PO SCH (09:08)
[2018-03-24] MEDS: Metoprolol Succinate 50 MG Tab.ER PO SCH ×2 (09:08→09:14)
--- NOTE | 2018-03-24 09:11 | PCM.PN ---
- General Info Date of Service: 03/24/18 Admission Dx/Problem (Free Text): Admission Diagnosis/Problem Admission Diagnosis/Problem Pulmonary embolism Subjective Update: Follow Up Functional Status: Reports: Pain Controlled, Tolerating Diet, Ambulating, Urinating. Denies: New Symptoms - Review of Systems General: Reports: Malaise. Denies: Fever, Weakness, Fatigue, Chills HEENT: Reports: No Symptoms Pulmonary: Reports: Shortness of Breath. Denies: Cough, Wheezing Cardiovascular: Reports: Dyspnea on Exertion. Denies: Chest Pain, Palpitations , Lightheadedness Gastrointestinal: Denies: Abdominal Pain, Decreased Appetite, Difficulty Swallowing, Nausea, Vomiting Genitourinary: Reports: No Symptoms Musculoskeletal: Reports: No Symptoms Skin: Reports: No Symptoms Neurological: Reports: Gait Disturbance. Denies: Confusion, Difficulty Walking , Weakness Psychiatric: Denies: No Symptoms, Depression, Anxiety, Hallucinations Systems Review Comment:: No significant overnight or acute issues. She remains afebrile w/o leukocytosis. Her Mg is slightly low at 1.6. Her Vit D-level is 28.3 and with a TSH level of 5.4. She has no other complaints this AM. - Patient Data Vitals - Most Recent: Last Vital Signs Temp 37.3 C 03/24/18 07:50 Pulse 54 L 03/24/18 09:08 Resp 18 03/24/18 07:50 BP 161/94 H 03/24/18 09:08 Pulse Ox 91 L 03/24/18 07:50 Weight - Most Recent: 66.043 kg I&O - Last 24 Hours: Intake & Output 03/23/18 03/24/18 03/24/18 22:59 06:59 14:59 Intake Total 400 Output Total 400 Balance -400 400 Lab Results Last 24 Hours: Laboratory Results - last 24 hr 03/23/18 03/23/18 03/23/18 Range/Units 13:15 13:15 13:15 WBC 7.47 (3.98-10.04) K/mm3 RBC 4.66 (3.98-5.22) M/mm3 Hgb 14.1 (11.2-15.7) gm/L Hct 40.7 (34.1-44.9) % MCV 87.3 (79.4-94.8) fl MCH 30.3 (25.6-32.2) pg MCHC 34.6 (32.2-35.5) g/dl RDW Std Deviation 48.5 H (36.4-46.3) fL Plt Count 207 (182-369) K/mm3 MPV 9.6 (9.4-12.3) fl Neut % (Auto) 68.1 (34.0-71.1) % Lymph % (Auto) 21.7 (19.3-51.7) % [place] % (Auto) 9.2 (4.7-12.5) % Eos % (Auto) 0.3 L (0.7-5.8) Baso % (Auto) 0.4 (0.1-1.2) % Neut # (Auto) 5.09 (1.56-6.13) K/mm3 Lymph # (Auto) 1.62 (1.18-3.74) K/mm3 [place] # (Auto) 0.69 H (0.24-0.36) K/mm3 Eos # (Auto) 0.02 L (0.04-0.36) K/mm3 Baso # (Auto) 0.03 (0.01-0.08) K/mm3 PT (9.5-12.1) SECONDS INR D-Dimer, Quantitative 3.28 H (0.19-0.50) mg/L Sodium (136-145) mEq/L Potassium (3.5-5.1) mEq/L Chloride (98-107) mEq/L Carbon Dioxide (21-32) mEq/L Anion Gap (5-15) BUN (7-18) mg/dL Creatinine (0.55-1.02) mg/dL Est Cr Clr Drug Dosing mL/min Estimated GFR (MDRD) (>60) mL/min BUN/Creatinine Ratio (14-18) Glucose (83-115) mg/dL Calcium (8.5-10.1) mg/dL Magnesium (1.8-2.4) mg/dl Total Bilirubin (0.2-1.0) mg/dL AST (15-37) U/L ALT (14-59) U/L Alkaline Phosphatase (46-116) U/L Troponin I (0.00-0.056) ng/mL C-Reactive Protein 1.9 H* (<1.0) mg/dL NT-Pro-B Natriuret Pep (0-450) pg/mL Total Protein (6.4-8.2) g/dl Albumin (3.4-5.0) g/dl Globulin gm/dL Albumin/Globulin Ratio (1-2) Vitamin D 25-Hydroxy (30.0-100.0) ng/ml Free T4 (0.76-1.46) ng/dL TSH 3rd Generation (0.358-3.74) uIU/mL 03/23/18 03/23/18 03/23/18 Range/Units 13:15 13:15 13:15 WBC (3.98-10.04) K/mm3 RBC (3.98-5.22) M/mm3 Hgb (11.2-15.7) gm/L Hct (34.1-44.9) % MCV (79.4-94.8) fl MCH (25.6-32.2) pg MCHC (32.2-35.5) g/dl RDW Std Deviation (36.4-46.3) fL Plt Count (182-369) K/mm3 MPV (9.4-12.3) fl Neut % (Auto) (34.0-71.1) % Lymph % (Auto) (19.3-51.7) % [place] % (Auto) (4.7-12.5) % Eos % (Auto) (0.7-5.8) Baso % (Auto) (0.1-1.2) % Neut # (Auto) (1.56-6.13) K/mm3 Lymph # (Auto) (1.18-3.74) K/mm3 [place] # (Auto) (0.24-0.36) K/mm3 Eos # (Auto) (0.04-0.36) K/mm3 Baso # (Auto) (0.01-0.08) K/mm3 PT 12.5 H (9.5-12.1) SECONDS INR 1.15 D-Dimer, Quantitative (0.19-0.50) mg/L Sodium 131 L (136-145) mEq/L Potassium 3.4 L (3.5-5.1) mEq/L Chloride 96 L (98-107) mEq/L Carbon Dioxide 19 L (21-32) mEq/L Anion Gap 19.4 H (5-15) BUN 34 H (7-18) mg/dL Creatinine 1.1 H (0.55-1.02) mg/dL Est Cr Clr Drug Dosing 31.81 mL/min Estimated GFR (MDRD) 47 (>60) mL/min BUN/Creatinine Ratio 30.9 H (14-18) Glucose 108 (83-115) mg/dL Calcium 8.9 (8.5-10.1) mg/dL Magnesium (1.8-2.4) mg/dl Total Bilirubin 1.1 H (0.2-1.0) mg/dL AST 47 H (15-37) U/L ALT 44 (14-59) U/L Alkaline Phosphatase 98 (46-116) U/L Troponin I 0.064 H* (0.00-0.056) ng/mL C-Reactive Protein (<1.0) mg/dL NT-Pro-B Natriuret Pep 2757 H (0-450) pg/mL Total Protein 6.8 (6.4-8.2) g/dl Albumin 3.2 L (3.4-5.0) g/dl Globulin 3.6 gm/dL Albumin/Globulin Ratio 0.9 L (1-2) Vitamin D 25-Hydroxy (30.0-100.0) ng/ml Free T4 (0.76-1.46) ng/dL TSH 3rd Generation (0.358-3.74) uIU/mL 03/24/18 03/24/18 Range/Units 06:55 06:55 WBC 6.47 (3.98-10.04) K/mm3 RBC 4.46 (3.98-5.22) M/mm3 Hgb 13.4 (11.2-15.7) gm/L Hct 39.5 (34.1-44.9) % MCV 88.6 (79.4-94.8) fl MCH 30.0 (25.6-32.2) pg MCHC 33.9 (32.2-35.5) g/dl RDW Std Deviation 49.5 H (36.4-46.3) fL Plt Count 201 (182-369) K/mm3 MPV 9.8 (9.4-12.3) fl Neut % (Auto) 61.8 (34.0-71.1) % Lymph % (Auto) 24.9 (19.3-51.7) % [place] % (Auto) 11.9 (4.7-12.5) % Eos % (Auto) 0.6 L (0.7-5.8) Baso % (Auto) 0.5 (0.1-1.2) % Neut # (Auto) 4.00 (1.56-6.13) K/mm3 Lymph # (Auto) 1.61 (1.18-3.74) K/mm3 [place] # (Auto) 0.77 H (0.24-0.36) K/mm3 Eos # (Auto) 0.04 (0.04-0.36) K/mm3 Baso # (Auto) 0.03 (0.01-0.08) K/mm3 PT (9.5-12.1) SECONDS INR D-Dimer, Quantitative (0.19-0.50) mg/L Sodium 134 L (136-145) mEq/L Potassium 4.3 (3.5-5.1) mEq/L Chloride 101 (98-107) mEq/L Carbon Dioxide 20 L (21-32) mEq/L Anion Gap 17.3 H (5-15) BUN 30 H (7-18) mg/dL Creatinine 1.0 (0.55-1.02) mg/dL Est Cr Clr Drug Dosing 29.34 mL/min Estimated GFR (MDRD) 52 (>60) mL/min BUN/Creatinine Ratio 30.0 H (14-18) Glucose 91 (83-115) mg/dL Calcium 8.8 (8.5-10.1) mg/dL Magnesium 1.6 L (1.8-2.4) mg/dl Total Bilirubin (0.2-1.0) mg/dL AST (15-37) U/L ALT (14-59) U/L Alkaline Phosphatase (46-116) U/L Troponin I (0.00-0.056) ng/mL C-Reactive Protein (<1.0) mg/dL NT-Pro-B Natriuret Pep (0-450) pg/mL Total Protein (6.4-8.2) g/dl Albumin (3.4-5.0) g/dl Globulin gm/dL Albumin/Globulin Ratio (1-2) Vitamin D 25-Hydroxy 28.3 L (30.0-100.0) ng/ml Free T4 1.32 (0.76-1.46) ng/dL TSH 3rd Generation 5.461 H (0.358-3.74) uIU/mL Med Orders - Current: Current Medications Acetaminophen (Tylenol) 650 mg PO Q4H PRN PRN Reason: Pain (Mild 1-3)/fever Hydrocodone Bitart/Acetaminophen ([place] 325-5 Mg) 1 tab PO Q4H PRN PRN Reason: Pain (moderate 4-6) Last Admin: 03/23/18 20:12 Dose: 1 tab Albuterol/Ipratropium (Duoneb 3.0-0.5 Mg/3 Ml) 3 ml NEB Q4H PRN PRN Reason: Shortness Of Breath/wheezing Amlodipine Besylate (Norvasc) 10 mg PO DAILY [facility] Last Admin: 03/24/18 09:07 Dose: 10 mg Apixaban (Eliquis) 5 mg PO BID [facility] Apixaban (Eliquis) 10 mg PO BID [facility] Stop: 03/30/18 21:01 Apixaban (Eliquis) 5 mg PO BID [facility] Bisacodyl (Dulcolax) 5 mg PO DAILY PRN PRN Reason: Constipation Docusate Sodium (Colace) 100 mg PO BID PRN PRN Reason: Constipation Hydralazine HCl (Apresoline) 20 mg IVPUSH Q4H PRN PRN Reason: Hypertension Hydrochlorothiazide (Hydrochlorothiazide) 25 mg PO DAILY [facility] Last Admin: 03/24/18 09:07 Dose: 25 mg Hydromorphone HCl (Dilaudid) 0.25 mg IVPUSH Q2H PRN PRN Reason: Pain (severe 7-10) Promethazine HCl 6.25 mg/ (Sodium Chloride) 50.25 mls @ 100 mls/hr IV Q6H PRN PRN Reason: Nausea/Vomiting Lorazepam (Ativan) 1 mg PO DAILY PRN PRN Reason: Anxiety Last Admin: 03/23/18 22:31 Dose: 1 mg Lorazepam (Ativan) 2 mg IVPUSH Q4H PRN PRN Reason: Seizures Lorazepam (Ativan) 0.25 mg IV Q6H PRN PRN Reason: Anxiety Losartan Potassium (Cozaar) 100 mg PO DAILY [facility] Last Admin: 03/24/18 09:08 Dose: 100 mg Magnesium Sulfate (Pharmacy To Dose - Magnesium Replacement) 0 dose .XX ASDIRECTED PRN PRN Reason: RX TO WATCH MAG Metoprolol Succinate (Toprol Xl) 50 mg PO DAILY [facility] Last Admin: 03/24/18 09:08 Dose: 50 mg Metoprolol Tartrate (Lopressor) 5 mg IVPUSH Q4H PRN PRN Reason: Tachycardia Non-Formulary Medication (Aspirin/Caffeine [Anacin 400-32 Mg Tablet]) 2 tab PO DAILY [facility] Ondansetron HCl (Zofran) 4 mg IV Q6H PRN PRN Reason: Nausea/Vomiting Polyethylene Glycol (Miralax) 17 gm PO DAILY PRN PRN Reason: Constipation Potassium Chloride (Klor-Con 10) 10 meq PO DAILY [facility] Last Admin: 03/24/18 09:08 Dose: 10 meq Potassium Chloride (Pharmacy To Dose - Potassium Replacement) 0 dose .XX ASDIRECTED PRN PRN Reason: RX TO WATCH K Ropinirole HCl (Requip) 0.5 mg PO BEDTIME [facility] Last Admin: 03/23/18 20:10 Dose: 0.5 mg Rosuvastatin Calcium (Crestor) 5 mg PO DAILY [facility] Last Admin: 03/24/18 09:08 Dose: 5 mg Senna/Docusate Sodium (Senna Plus) 1 tab PO BID PRN PRN Reason: Constipation Sodium Chloride (Saline Flush) 10 ml FLUSH ASDIRECTED PRN PRN Reason: Keep Vein Open Last Admin: 03/23/18 14:34 Dose: 10 ml Temazepam (Restoril) 7.5 mg PO BEDTIME PRN PRN Reason: Sleep Vit A/Vit C/Vit E/Selen/Cu/Zn/Lutei (Icaps Mv) 1 tab PO DAILY [facility] Last Admin: 03/24/18 09:07 Dose: 1 tab Discontinued Medications Apixaban (Eliquis) 10 mg PO BID [facility] Stop: 03/30/18 09:01 Apixaban (Eliquis) 10 mg PO BID [facility] Stop: 03/31/18 09:01 Enoxaparin Sodium (Lovenox) 60 mg SUBCUT ONETIME ONE Stop: 03/23/18 21:01 Last Admin: 03/23/18 21:43 Dose: 60 mg Hydromorphone HCl (Dilaudid) 0.25 mg IVPUSH Q2H PRN PRN Reason: Pain (severe 7-10) Sodium Chloride (Normal Saline) 500 mls @ 999 mls/hr IV .BOLUS ONE Stop: 03/23/18 16:30 Last Admin: 03/23/18 16:44 Dose: 999 mls/hr Sodium Chloride (Normal Saline) 100 mls @ 60 mls/hr IV ASDIRECTED [facility] Last Admin: 03/23/18 16:37 Dose: 60 mls/hr Iopamidol (Isovue-370 (76%)) 100 ml IVPUSH ONETIME ONE Stop: 03/23/18 16:20 Last Admin: 03/23/18 16:37 Dose: 80 ml Potassium Chloride (Klor-Con M20) 40 meq PO Q4H YOGESH Stop: 03/23/18 23:31 Last Admin: 03/23/18 22:30 Dose: 40 meq Sodium Chloride (Saline Flush) 10 ml FLUSH ONETIME ONE Stop: 03/23/18 16:20 Last Admin: 03/23/18 16:37 Dose: 10 ml - Exam Quality Assessment: Supplemental Oxygen General: Alert, Oriented, Cooperative, No Acute Distress HEENT: Pupils Equal, Pupils Reactive, EOMI, Mucous Membr. Moist/[place] Neck: Supple, No JVD Lungs: Normal Respiratory Effort, Decreased Breath Sounds, Other (poor inspiratory/expiraotry effort) Cardiovascular: Regular Rate, Regular Rhythm GI/Abdominal Exam: Normal Bowel Sounds, Soft, Non-Tender, No Organomegaly, No Distention, No Abnormal Bruit, No Mass (Female) Exam: Deferred Back Exam: Normal Inspection, Decreased Range of Motion Extremities: Normal Inspection, Normal Range of Motion, Non-Tender, Normal Capillary Refill, Other (mild edema on right leg). No: Mojgan's Sign, Leg Pain, Increased Warmth, Pallor, Redness Peripheral Pulses: 2+: Dorsalis Pedis (L), Dorsalis Pedis (R) Skin: Warm, Dry, Intact Neurological: No New Focal Deficit Psy/Mental Status: Alert, Normal Affect, Normal Mood - Problem List Review Problem List Initiated/Reviewed/Updated: Yes - My Orders Last 24 Hours: My Active Orders 03/23/18 19:03 LORazepam [Ativan] 1 mg PO DAILY PRN 03/23/18 19:04 LORazepam [Ativan] 2 mg IVPUSH Q4H PRN Metoprolol Tartrate [Lopressor] 5 mg IVPUSH Q4H PRN hydrALAZINE [Apresoline] 20 mg IVPUSH Q4H PRN 03/23/18 19:07 Height and Weight [RC] 04 Oxygen Therapy [RC] PRN Up With Assistance [RC] Up ad Neetu [RC] VTE/DVT Education [RC] PER UNIT ROUTINE Vital Signs [RC] Q4HR Consult to Case Management [CONS] Routine Consult to Bottoming Machine Operator [CONS] Routine Consult to Spiritual Care [CONS] Routine Respiratory Care Assess and Treatment [CONS] Routine Acetaminophen [Tylenol] 650 mg PO Q4H PRN Acetaminophen/HYDROcodone [[place] 325-5 MG] 1 tab PO Q4H PRN Albuterol/Ipratropium [DuoNeb 3.0-0.5 MG/3 ML] 3 ml NEB Q4H PRN Bisacodyl [Dulcolax] 5 mg PO DAILY PRN Docusate Sodium [Colace] 100 mg PO BID PRN Docusate Sodium/Sennosides [Senna Plus] 1 tab PO BID PRN LORazepam [Ativan] 0.25 mg IV Q6H PRN Ondansetron [Zofran] 4 mg IV Q6H PRN Polyethylene Glycol 3350 [MiraLAX] 17 gm PO DAILY PRN Promethazine [Phenergan] 6.25 mg Sodium Chloride 0.9% [Normal Saline] 50 ml IV Q6H Temazepam [Restoril] 7.5 mg PO BEDTIME PRN Resuscitation Status Routine 03/23/18 19:08 Intake and Output [RC] 04,16 Pulse Oximetry [RC] PRN 03/23/18 19:09 RT Aerosol Therapy [RC] ASDIRECTED 03/23/18 19:10 Incentive Spirometry [RT Incentive Spirometry] [RC] Q2HWA 03/23/18 19:15 Magnesium Rep Pharmacy to Dose [Pharmacy to Dose - Magnesium Replacement] 0 dose .XX ASDIRECTED PRN Potassium Rep Pharmacy to Dose [Pharmacy to Dose - Potassium Replacement] 0 dose .XX ASDIRECTED PRN 03/23/18 21:00 rOPINIRole [Requip] 0.5 mg PO BEDTIME 03/24/18 08:00 Echo Comp wo Cont [US] Routine Thoracentesis W/ US Guide [US] Routine 03/24/18 08:45 HYDROmorphone [Dilaudid] 0.25 mg IVPUSH Q2H PRN 03/24/18 09:00 Apixaban [Eliquis] 10 mg PO BID Aspirin/Caffeine [Anacin 400-32 mg Tablet] 2 tab PO DAILY Losartan [Cozaar] 100 mg PO DAILY Metoprolol Succinate [Toprol XL] 50 mg PO DAILY Multivitamins/Min/FA/Lut/Zeax [ICaps MV] 1 tab PO DAILY Potassium Chloride [Klor-Con 10] 10 meq PO DAILY Rosuvastatin [Crestor] 5 mg PO DAILY amLODIPine [Norvasc] 10 mg PO DAILY hydroCHLOROthiazide 25 mg PO DAILY 03/24/18 Breakfast Fluid Restriction [DIET] Heart Healthy Diet [DIET] 03/25/18 05:11 BASIC METABOLIC PANEL,BMP [CHEM] AM MAGNESIUM [CHEM] AM 03/26/18 05:11 BASIC METABOLIC PANEL,BMP [CHEM] AM MAGNESIUM [CHEM] AM PRO B-TYPE NATRIUR PEPT,BNPPRO [CHEM] 0511 03/31/18 09:00 Apixaban [Eliquis] 5 mg PO BID Apixaban [Eliquis] 5 mg PO BID - Plan Plan:: Assessment/Plan: Acute: Pulmonary Embolism - Risk factor underlying malignancy (makes her hypercoagulable) - D-Dimer is 3.28 - 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 - Chest CT scan Filing Defect in the Middle Lobe Segmental Pulmonary Artery - Duplex U/S shows negative for DVT - Offered traditional vs novel anticoagulant--> after weighing risk and benefits; she wasnt to be on NOACS; she okayed eliquis which we will start in AM after the procedure - Received lovenox subQ last night; will start eliquis after thoracensis today Heart Failure - No known hx/o of it but clinical signs: b/l pleural effusion, shortness of breath, leg edema and elevated BNP level og 2757 - CT scan confirms right sided heart failure: marked dilation of right atrium measuring 9 cm in max diameter, cardiomegaly, contrast refluxes into a dilated inferior vena cava and hepatic veins as well as the superior vena cava and tributaries - Hear failure protocol: diuretics, Is/Os, strict fluid/salt restrictions and daily weight check - 2D echo not available these weekends - Thyroid panel- TSH abnormal but FT4 is wnl; recommend follow up outpatient B/L Pleural Effusion - R>>L - Suspect 2/2 Heart Failure +/- Malignancy - Offered therapeutic and diagnostic thoracetesis- agreed--> will perform as soon her niece gets here - Showed CT scan Image and You tube Thoracentesis Procedure to her and Niece at bedside - Supportive Care and Supplemental O2 Hypomagnesemia - Mg of 1.6 - 2/2 Inadequate intake - Replete and monitor Vitamin D Deficiency - Very minimally low at 28.3 (30-100 normal range) - Hold off treatment S/p Hypokalemia, Mild - K 3.4 --> 4.3 - Replete and monitor S/p Slightly Elevated Troponin Level - Troponin 0.064 - 2/2 heart strain - Likely resolved Minimal Interval Change of a Nodule in the Left Upper Lobe - Chest CT scan finding Sinus Bradycardia - HR in the 50s - Will monitor HTN - Not well controlled - Hopefully starts to get better after thoracentesis - Resume Home BP regimen - Hydralazine IVP Q4H PRN Chronic: HLD Carotid Stenosis S/p Stent Placement Hx/o Bladder CA Hx/o Skin CA S/p Surgical Resection Progressive Changes of Centrilobular Emphysema with hx/o Smoking Plan: She is clinically stable Routine AM Labs Continue PT/OT/RT consult Fall Precautions SW/CM for d/c planning Thoracentesis as soon as niece arrives PE Tx/DVT PPx: Eliquis Protocol Titrate to slowly come off Supplemental O2 after Thoracentesis Encourage IS to use as directed Additional orders as above Code status: DNR/DNI
[2018-03-24] MEDS ORDERED: Magnesium Sulfate/Water 2 GM in Premix Bag 1 BAG IV ONE (10:00)
[2018-03-24] MEDS: Apixaban 5 MG Tab PO SCH ×2 (10:31→21:23)
--- NOTE | 2018-03-24 11:32 | CR ---
Chest: Portable view of the chest was obtained. Comparison: Prior chest x-ray of 03/23/[address] exam of 03/23/18. Previous noted right-sided pleural effusion has diminished in the interim from prior study compatible with interval thoracentesis. No pneumothorax is seen. Heart is enlarged. Pulmonary vessels are mildly congested. Bony structures are grossly intact. Surgical clips are seen at the base of the right neck. Impression: 1. Thoracentesis on the right side with no findings of pneumothorax being seen at this time. 2. Cardiomegaly and mild pulmonary vascular congestion. 3. Other incidental findings. Diagnostic code #3
--- NOTE | 2018-03-24 11:42 | PCM.PRNOTE ---
- Free Text/Narrative Note: DATE OF PROCEDURE: 03/24/2018 PREOPERATIVE DIAGNOSIS: Bilateral Pleural Effusion: R>>L POSTOPERATIVE DIAGNOSIS: Bilateral Pleural Effusion PROCEDURE PERFORMED: U/S Guided Diagnostic and Therapeutic Right Sided Thoracentesis SURGEON: Twila Fernandez DO DESCRIPTION OF PROCEDURE: After informed consent was obtained, signed, the patient had ultrasound localization in the right hemithorax. The patient was sterilely prepped and topical lidocaine was induced. Stab incision was made and a thoracentesis catheter was inserted and 825 mL of clear straw colored fluid was obtained without difficulty. Estimated Blood Loss: Minimal The patient tolerated the procedure well w/o any complications. Postprocedure chest x-ray shows no findings of pneumothorax.
[2018-03-24] MEDS ORDERED: Apixaban 5 MG Tab PO SCH (21:00)
[2018-03-24] MEDS: Mupirocin Oint 22 GM Tube TOP SCH (21:10)
[2018-03-24] MEDS: rOPINIRole 0.25 MG Tab PO SCH (21:24)
[2018-03-24] MEDS: LORazepam 1 MG Tab PO PRN (21:25)
[2018-03-25] MEDS: Mupirocin Oint 22 GM Tube TOP SCH ×4 (09:23→21:19)
[2018-03-25] MEDS: Rosuvastatin 10 MG Tab PO SCH (09:24)
[2018-03-25] MEDS: amLODIPine 10 MG Tab PO SCH (09:25)
[2018-03-25] MEDS: Losartan 100 MG Tab PO SCH (09:25)
[2018-03-25] MEDS: Hydrochlorothiazide 25 MG Tab PO SCH (09:25)
--- NOTE | 2018-03-25 09:25 | PCM.PN ---
- General Info Date of Service: 03/25/18 Admission Dx/Problem (Free Text): Admission Diagnosis/Problem Admission Diagnosis/Problem Pulmonary embolism Subjective Update: Follow Up Functional Status: Reports: Pain Controlled, Tolerating Diet, Ambulating, Urinating, New Symptoms, Incentive Spirometry - Review of Systems General: Denies: Fever, Weakness, Fatigue, Malaise, Chills HEENT: Reports: No Symptoms Pulmonary: Reports: Shortness of Breath. Denies: Cough Cardiovascular: Denies: Chest Pain, Dyspnea on Exertion, Lightheadedness Gastrointestinal: Reports: Abdominal Pain (lower abdomen but only when she gets up), Flatus. Denies: Constipation, Decreased Appetite, Diarrhea, Difficulty Swallowing, Hematochezia, Melena, Nausea, Vomiting Genitourinary: Reports: No Symptoms Musculoskeletal: Reports: No Symptoms Skin: Denies: Cyanosis, Pallor, Diaphoresis Neurological: Denies: Confusion, Difficulty Walking, Weakness, Gait Disturbance Psychiatric: Denies: No Symptoms, Depression, Anxiety, Hallucinations Systems Review Comment:: No significant overnight issues although she had a 5 second pause on telemetry. She looks good this AM and she states 'I'm doing better". She complaints of having to go to the bath room a lot due to diuretic. She is afebrile w/o leukocytosis. Her blood pressures remain uncontrolled. She is now on 3L NC for supplemental O2. Her morning shows she is low on K at 3.4 and Mg at 1.7. - Patient Data Vitals - Most Recent: Last Vital Signs Temp 37.1 C 03/25/18 05:57 Pulse 92 03/25/18 05:57 Resp 18 03/25/18 05:57 BP 138/65 03/25/18 05:59 Pulse Ox 91 L 03/25/18 06:41 Weight - Most Recent: 64.047 kg I&O - Last 24 Hours: Intake & Output 03/24/18 03/25/18 03/25/18 22:59 06:59 14:59 Intake Total 450 400 Output Total 350 2500 Balance 100 -2100 Lab Results Last 24 Hours: Laboratory Results - last 24 hr 03/24/18 03/24/18 03/25/18 Range/Units 06:55 10:30 05:54 Sodium 138 (136-145) mEq/L Potassium 3.4 L (3.5-5.1) mEq/L Chloride 103 (98-107) mEq/L Carbon Dioxide 25 (21-32) mEq/L Anion Gap 13.4 (5-15) BUN 26 H (7-18) mg/dL Creatinine 0.9 (0.55-1.02) mg/dL Est Cr Clr Drug Dosing 32.60 mL/min Estimated GFR (MDRD) 59 (>60) mL/min BUN/Creatinine Ratio 28.9 H (14-18) Glucose 101 (83-115) mg/dL Calcium 8.6 (8.5-10.1) mg/dL Magnesium 1.7 L (1.8-2.4) mg/dl Lactate Dehydrogenase 259 H (81-234) U/L Body Fluid Site Right lung Fluid Type Thoracentesis fluid Fluid Volume 842 ML Fluid Color Yellow Fluid Appearance Slightly cloudy Fluid pH 8.0 (4.5-10.0) Fluid WBC 0.75 H (0.20-0.60) k/mm*3 Fluid RBC < 0.003 (0.00-0.010) 10*6/uL Fluid Diff Comment Not Reportable Fluid Seg Neutrophils 5.0 (0-25) % Fluid Lymphocytes 83.0 H (0-78) % Fluid Monocytes 9.0 (0-71) % Fl Polymorphonucl Cell Not Reportable Fluid Macrophages 2 Fld Meso/Macro/Monocyte 1 Fluid Glucose 116 mg/dL Fluid Total Protein < 2.0 gm/dl Fluid LDH 117 U/L James Results Last 24 Hours: Microbiology 03/24/18 10:30 Gram Stain - Final Thoracentesis Fluid - Right Body Fluid Culture - Preliminary NO GROWTH AFTER 1 DAY 03/24/18 10:30 MIGUEL Preparation - Final Other Med Orders - Current: Current Medications Acetaminophen (Tylenol) 650 mg PO Q4H PRN PRN Reason: Pain (Mild 1-3)/fever Hydrocodone Bitart/Acetaminophen ([place] 325-5 Mg) 1 tab PO Q4H PRN PRN Reason: Pain (moderate 4-6) Last Admin: 03/23/18 20:12 Dose: 1 tab Albuterol/Ipratropium (Duoneb 3.0-0.5 Mg/3 Ml) 3 ml NEB Q4H PRN PRN Reason: Shortness Of Breath/wheezing Amlodipine Besylate (Norvasc) 10 mg PO DAILY [facility] Last Admin: 03/24/18 09:07 Dose: 10 mg Apixaban (Eliquis) 10 mg PO BID [facility] Stop: 03/30/18 21:01 Last Admin: 03/24/18 21:23 Dose: 10 mg Apixaban (Eliquis) 5 mg PO BID [facility] Bisacodyl (Dulcolax) 5 mg PO DAILY PRN PRN Reason: Constipation Docusate Sodium (Colace) 100 mg PO BID PRN PRN Reason: Constipation Hydralazine HCl (Apresoline) 20 mg IVPUSH Q4H PRN PRN Reason: Hypertension Hydrochlorothiazide (Hydrochlorothiazide) 25 mg PO DAILY [facility] Last Admin: 03/24/18 09:07 Dose: 25 mg Hydromorphone HCl (Dilaudid) 0.25 mg IVPUSH Q2H PRN PRN Reason: Pain (severe 7-10) Last Admin: 03/24/18 09:43 Dose: 0.25 mg Promethazine HCl 6.25 mg/ (Sodium Chloride) 50.25 mls @ 100 mls/hr IV Q6H PRN PRN Reason: Nausea/Vomiting Lorazepam (Ativan) 1 mg PO DAILY PRN PRN Reason: Anxiety Last Admin: 03/24/18 21:25 Dose: 1 mg Lorazepam (Ativan) 2 mg IVPUSH Q4H PRN PRN Reason: Seizures Lorazepam (Ativan) 0.25 mg IV Q6H PRN PRN Reason: Anxiety Last Admin: 03/24/18 09:42 Dose: 0.25 mg Losartan Potassium (Cozaar) 100 mg PO DAILY [facility] Last Admin: 03/24/18 09:08 Dose: 100 mg Magnesium Sulfate (Pharmacy To Dose - Magnesium Replacement) 0 dose .XX ASDIRECTED PRN PRN Reason: RX TO WATCH MAG Metoprolol Succinate (Toprol Xl) 50 mg PO DAILY [facility] Last Admin: 03/24/18 09:14 Dose: Not Given Metoprolol Tartrate (Lopressor) 5 mg IVPUSH Q4H PRN PRN Reason: Tachycardia Mupirocin (Bactroban Oint) 0 gm TOP QID [facility] Last Admin: 03/24/18 21:10 Dose: 1 applic Ondansetron HCl (Zofran) 4 mg IV Q6H PRN PRN Reason: Nausea/Vomiting Polyethylene Glycol (Miralax) 17 gm PO DAILY PRN PRN Reason: Constipation Potassium Chloride (Klor-Con 10) 10 meq PO DAILY [facility] Last Admin: 03/24/18 09:08 Dose: 10 meq Potassium Chloride (Pharmacy To Dose - Potassium Replacement) 0 dose .XX ASDIRECTED PRN PRN Reason: RX TO WATCH K Ropinirole HCl (Requip) 0.5 mg PO BEDTIME [facility] Last Admin: 03/24/18 21:24 Dose: 0.5 mg Rosuvastatin Calcium (Crestor) 5 mg PO DAILY [facility] Last Admin: 03/24/18 09:08 Dose: 5 mg Senna/Docusate Sodium (Senna Plus) 1 tab PO BID PRN PRN Reason: Constipation Sodium Chloride (Saline Flush) 10 ml FLUSH ASDIRECTED PRN PRN Reason: Keep Vein Open Last Admin: 03/23/18 14:34 Dose: 10 ml Temazepam (Restoril) 7.5 mg PO BEDTIME PRN PRN Reason: Sleep Vit A/Vit C/Vit E/Selen/Cu/Zn/Lutei (Icaps Mv) 1 tab PO DAILY [facility] Last Admin: 03/24/18 09:07 Dose: 1 tab Discontinued Medications Apixaban (Eliquis) 10 mg PO BID [facility] Stop: 03/30/18 09:01 Apixaban (Eliquis) 5 mg PO BID [facility] Apixaban (Eliquis) 10 mg PO BID [facility] Stop: 03/31/18 09:01 Enoxaparin Sodium (Lovenox) 60 mg SUBCUT ONETIME ONE Stop: 03/23/18 21:01 Last Admin: 03/23/18 21:43 Dose: 60 mg Hydromorphone HCl (Dilaudid) 0.25 mg IVPUSH Q2H PRN PRN Reason: Pain (severe 7-10) Sodium Chloride (Normal Saline) 500 mls @ 999 mls/hr IV .BOLUS ONE Stop: 03/23/18 16:30 Last Admin: 03/23/18 16:44 Dose: 999 mls/hr Sodium Chloride (Normal Saline) 100 mls @ 60 mls/hr IV ASDIRECTED [facility] Last Admin: 03/23/18 16:37 Dose: 60 mls/hr Magnesium Sulfate 2 gm/ Premix 50 mls @ 25 mls/hr IV ONETIME ONE Stop: 03/24/18 11:59 Last Admin: 03/24/18 10:31 Dose: 25 mls/hr Iopamidol (Isovue-370 (76%)) 100 ml IVPUSH ONETIME ONE Stop: 03/23/18 16:20 Last Admin: 03/23/18 16:37 Dose: 80 ml Non-Formulary Medication (Aspirin/Caffeine [Anacin 400-32 Mg Tablet]) 2 tab PO DAILY [facility] Potassium Chloride (Klor-Con M20) 40 meq PO Q4H [facility] Stop: 03/23/18 23:31 Last Admin: 03/23/18 22:30 Dose: 40 meq Sodium Chloride (Saline Flush) 10 ml FLUSH ONETIME ONE Stop: 03/23/18 16:20 Last Admin: 03/23/18 16:37 Dose: 10 ml - Exam Quality Assessment: Supplemental Oxygen General: Alert, Cooperative, No Acute Distress HEENT: Pupils Equal, Pupils Reactive, Mucous Membr. Moist/[place] Neck: Supple, Trachea Midline, No JVD Lungs: Normal Respiratory Effort, Decreased Breath Sounds, Crackles (left base) Cardiovascular: Regular Rate, Regular Rhythm GI/Abdominal Exam: Normal Bowel Sounds, Soft, Non-Tender, No Organomegaly, No Distention, No Abnormal Bruit, No Mass. No: Guarding, Rebound, Hernia, Hepatomegaly, Splenomegaly (Female) Exam: Deferred Back Exam: Normal Inspection, Decreased Range of Motion Extremities: Normal Inspection, Normal Range of Motion, Non-Tender, No Pedal Edema, Normal Capillary Refill, Other (varicose veins on both lower leg) Peripheral Pulses: 2+: Dorsalis Pedis (L), Dorsalis Pedis (R) Skin: Warm, Dry, Intact Neurological: No New Focal Deficit Psy/Mental Status: Alert, Normal Affect, Normal Mood - Problem List Review Problem List Initiated/Reviewed/Updated: Yes - My Orders Last 24 Hours: My Active Orders 03/24/18 08:45 HYDROmorphone [Dilaudid] 0.25 mg IVPUSH Q2H PRN 03/24/18 09:00 Apixaban [Eliquis] 10 mg PO BID Losartan [Cozaar] 100 mg PO DAILY Metoprolol Succinate [Toprol XL] 50 mg PO DAILY Multivitamins/Min/FA/Lut/Zeax [ICaps MV] 1 tab PO DAILY Potassium Chloride [Klor-Con 10] 10 meq PO DAILY Rosuvastatin [Crestor] 5 mg PO DAILY amLODIPine [Norvasc] 10 mg PO DAILY hydroCHLOROthiazide 25 mg PO DAILY 03/24/18 10:30 CULTURE AFB AND SMEAR [MREF] Routine CULTURE BODY FLUID + SMEAR [RM] Routine CULTURE FUNGUS [MREF] Routine MISC TEST Routine 03/24/18 21:00 Mupirocin Oint [Bactroban Oint] 0 gm TOP QID 03/26/18 05:11 BASIC METABOLIC PANEL,BMP [CHEM] AM MAGNESIUM [CHEM] AM PRO B-TYPE NATRIUR PEPT,BNPPRO [CHEM] 0511 03/31/18 09:00 Apixaban [Eliquis] 5 mg PO BID - Plan Plan:: Assessment/Plan: Acute: Pulmonary Embolism - Risk factor underlying malignancy (makes her hypercoagulable) - D-Dimer is 3.28 - 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 - Chest CT scan Filing Defect in the Middle Lobe Segmental Pulmonary Artery - Duplex U/S shows negative for DVT - Offered traditional vs novel anticoagulant--> after weighing risk and benefits; she wants to be on NOACS; she okayed eliquis which we will start in AM after the procedure - Received lovenox subQ last night; will start eliquis after thoracentesis today--> continue eliquis Heart Failure - No known hx/o of it but clinical signs: b/l pleural effusion, shortness of breath, leg edema and elevated BNP level og 2757 - CT scan confirms right sided heart failure: marked dilation of right atrium measuring 9 cm in max diameter, cardiomegaly, contrast refluxes into a dilated inferior vena cava and hepatic veins as well as the superior vena cava and tributaries - Hear failure protocol: diuretics, Is/Os, strict fluid/salt restrictions and daily weight check - 2D echo not available these weekends; to be done in AM - Thyroid panel- TSH abnormal but FT4 is wnl; recommend follow up outpatient B/L Pleural Effusion S/p Thoracentesis - R>>L; 825 ml of straw colored pleural fluid removed - Suspect 2/2 Heart Failure +/- Malignancy - Offered therapeutic and diagnostic thoracentesis- agreed--> will perform as soon her niece gets here - Showed CT scan Image and You tube Thoracentesis Procedure to her and Niece at bedside - Pleural fluid analysis: Slightly elevated levels of WBC and lymphocytes ( pathology pending) - Light Criteria is Incomplete--pending serum LDH level - Supportive Care and Supplemental O2 - Continue low dose intravenous bumex HTN - Still not well controlled - Resume Home BP regimen - Will add HCTZ since Na has now back to normal range - Hydralazine IVP Q4H PRN Hypomagnesemia, Improved - Mg of 1.6--> 1.7 - 2/2 Inadequate intake - Replete and monitor Hypokalemia - K 3.4 --> 4.3--> 3.4 - 2/2 Diuresis - Replete and monitor Minimal Interval Change of a Nodule in the Left Upper Lobe - Chest CT scan finding Resolved: S/p Slightly Elevated Troponin Level - Troponin 0.064 - 2/2 heart strain - Likely resolved Vitamin D Deficiency - Very minimally low at 28.3 (30-100 normal range) - Hold off treatment S/p Sinus Bradycardia - HR in the 50s - Will monitor Chronic: HLD Carotid Stenosis S/p Stent Placement Hx/o Bladder CA Hx/o Skin CA S/p Surgical Resection Progressive Changes of Centrilobular Emphysema with hx/o Smoking Plan: She remains clinically stable Continue current treatment Routine AM Labs Continue PT/OT/RT Fall Precautions 2D echo in AM SW/CM for d/c planning PE Tx/DVT PPx: Eliquis Protocol Titrate to slowly come off Supplemental O2 after Thoracentesis Encourage IS to use as directed Additional orders as above Code status: DNR/DNI Met family member at bedside with patient's permission. Updated her about patient's current diagnoses, clinical progress and treatment plan.
[2018-03-25] MEDS: Metoprolol Succinate 50 MG Tab.ER PO SCH (09:26)
[2018-03-25] MEDS: Potassium Chloride 10 MEQ Tab.ER PO SCH (09:26)
[2018-03-25] MEDS: Apixaban 5 MG Tab PO SCH ×2 (09:26→21:20)
[2018-03-25] MEDS: Multivitamins with Minerals/Folic Acid/Lutein/Zeaxanth Tab PO SCH (09:26)
[2018-03-25] MEDS ORDERED: Bumetanide 1 MG/4 ML MDV IVPUSH ONE (09:27)
[2018-03-25] MEDS ORDERED: Potassium Chloride 20 MEQ Tab.ER PO ONE (11:00)
[2018-03-25] MEDS ORDERED: Magnesium Sulfate/Water 2 GM in Premix Bag 1 BAG IV ONE (11:00)
[2018-03-25] MEDS: rOPINIRole 0.25 MG Tab PO SCH (21:20)
[2018-03-25] MEDS: LORazepam 1 MG Tab PO PRN (21:21)
--- NOTE | 2018-03-26 07:30 | CT ---
CT chest Technique: Multiple axial sections through the chest were obtained. Intravenous contrast was utilized. Study has been performed as a pulmonary angiogram protocol. Comparison: Prior chest CT exam of 09/13/14. Findings: Pulmonary arteries are well opacified. No filling defects are seen to indicate pulmonary embolism. Heart is enlarged with asymmetric prominence of the right atria. Small left sided pleural effusion is seen. Moderate right sided pleural effusion is noted. Mediastinum and hilar regions show no adenopathy or mass. Aorta shows no aneurysm with atherosclerotic calcification. Small subpleural nodule noted within the left upper chest measuring about 5 mm in size. This finding on prior chest CT measured about 3 mm in size. Diffuse emphysematous change is present. Lungs otherwise are clear. Impression: 1. Cardiomegaly with asymmetric prominence of the right atrium suggesting right heart failure. 2. Diffuse emphysematous change. 3. Slightly enlarging subpleural nodule within the left upper chest having increased by about 2 mm from prior study from 2015. 4. No findings of pulmonary embolism. 5. Small left sided pleural effusion and moderate-sized right-sided pleural effusion most likely secondary to CHF. Diagnostic code #3 I agree with preliminary report from [facility], finalized at 03/23/18, 6:21 PM Central Time
[2018-03-26] MEDS: amLODIPine 10 MG Tab PO SCH (08:22)
[2018-03-26] MEDS: Multivitamins with Minerals/Folic Acid/Lutein/Zeaxanth Tab PO SCH (08:23)
[2018-03-26] MEDS: Losartan 100 MG Tab PO SCH (08:24)
[2018-03-26] MEDS: Hydrochlorothiazide 25 MG Tab PO SCH (08:24)
[2018-03-26] MEDS: Rosuvastatin 10 MG Tab PO SCH (08:26)
[2018-03-26] MEDS: Apixaban 5 MG Tab PO SCH ×2 (08:26→20:40)
[2018-03-26] MEDS: Potassium Chloride 10 MEQ Tab.ER PO SCH (08:27)
[2018-03-26] MEDS: Metoprolol Succinate 50 MG Tab.ER PO SCH (08:28)
[2018-03-26] MEDS: Mupirocin Oint 22 GM Tube TOP SCH ×4 (08:29→20:41)
--- NOTE | 2018-03-26 08:36 | CR ---
Chest: Portable view of the chest was obtained. Comparison: No prior chest x-ray. Small left-sided pleural effusion is seen with a larger right sided pleural effusion. Heart is enlarged. Pulmonary vessels are felt to be congested. Surgical clips are seen within the right neck. Atelectasis is noted within the right lung base. Impression: 1. Findings felt compatible with CHF. Diagnostic code #3
[2018-03-26] MEDS: Bumetanide 1 MG/4 ML MDV IVPUSH SCH (09:06)
--- NOTE | 2018-03-26 13:38 | PCM.PN ---
- General Info Date of Service: 03/26/18 Admission Dx/Problem (Free Text): Admission Diagnosis/Problem Admission Diagnosis/Problem Pulmonary embolism Functional Status: Reports: Pain Controlled, Tolerating Diet - Review of Systems General: Reports: Fatigue HEENT: Reports: No Symptoms Pulmonary: Reports: No Symptoms Cardiovascular: Reports: No Symptoms Gastrointestinal: Reports: No Symptoms Genitourinary: Reports: No Symptoms Musculoskeletal: Reports: No Symptoms Skin: Reports: No Symptoms Neurological: Reports: No Symptoms Psychiatric: Reports: No Symptoms Systems Review Comment:: No new symptoms today. States she is feeling better. Tired after having echo done. - Patient Data Vitals - Most Recent: Last Vital Signs Temp 98.1 F 03/26/18 11:24 Pulse 62 03/26/18 11:24 Resp 12 03/26/18 11:24 BP 138/49 L 03/26/18 11:24 Pulse Ox 91 L 03/26/18 11:24 Weight - Most Recent: 136 lb 1 oz I&O - Last 24 Hours: Intake & Output 03/25/18 03/26/18 03/26/18 22:59 06:59 14:59 Intake Total 750 400 180 Output Total 2050 Balance -1300 400 180 Lab Results Last 24 Hours: Laboratory Results - last 24 hr 03/25/18 03/26/18 03/26/18 Range/Units 05:54 06:00 06:00 WBC (3.98-10.04) K/mm3 RBC (3.98-5.22) M/mm3 Hgb (11.2-15.7) gm/L Hct (34.1-44.9) % MCV (79.4-94.8) fl MCH (25.6-32.2) pg MCHC (32.2-35.5) g/dl RDW Std Deviation (36.4-46.3) fL Plt Count (182-369) K/mm3 MPV (9.4-12.3) fl Neut % (Auto) (34.0-71.1) % Lymph % (Auto) (19.3-51.7) % [place] % (Auto) (4.7-12.5) % Eos % (Auto) (0.7-5.8) Baso % (Auto) (0.1-1.2) % Neut # (Auto) (1.56-6.13) K/mm3 Lymph # (Auto) (1.18-3.74) K/mm3 [place] # (Auto) (0.24-0.36) K/mm3 Eos # (Auto) (0.04-0.36) K/mm3 Baso # (Auto) (0.01-0.08) K/mm3 Sodium 140 (136-145) mEq/L Potassium 3.6 (3.5-5.1) mEq/L Chloride 105 (98-107) mEq/L Carbon Dioxide 28 (21-32) mEq/L Anion Gap 10.6 (5-15) BUN 25 H (7-18) mg/dL Creatinine 1.0 (0.55-1.02) mg/dL Est Cr Clr Drug Dosing 29.34 mL/min Estimated GFR (MDRD) 52 (>60) mL/min BUN/Creatinine Ratio 25.0 H (14-18) Glucose 94 (83-115) mg/dL Calcium 8.6 (8.5-10.1) mg/dL Magnesium 1.9 (1.8-2.4) mg/dl Lactate Dehydrogenase 265 H (81-234) U/L NT-Pro-B Natriuret Pep 1777 H (0-450) pg/mL 03/26/18 Range/Units 06:00 WBC 7.41 (3.98-10.04) K/mm3 RBC 4.30 (3.98-5.22) M/mm3 Hgb 12.8 (11.2-15.7) gm/L Hct 39.2 (34.1-44.9) % MCV 91.2 (79.4-94.8) fl MCH 29.8 (25.6-32.2) pg MCHC 32.7 (32.2-35.5) g/dl RDW Std Deviation 51.6 H (36.4-46.3) fL Plt Count 189 (182-369) K/mm3 MPV 9.4 (9.4-12.3) fl Neut % (Auto) 64.0 (34.0-71.1) % Lymph % (Auto) 22.8 (19.3-51.7) % [place] % (Auto) 11.2 (4.7-12.5) % Eos % (Auto) 1.3 (0.7-5.8) Baso % (Auto) 0.4 (0.1-1.2) % Neut # (Auto) 4.74 (1.56-6.13) K/mm3 Lymph # (Auto) 1.69 (1.18-3.74) K/mm3 [place] # (Auto) 0.83 H (0.24-0.36) K/mm3 Eos # (Auto) 0.10 (0.04-0.36) K/mm3 Baso # (Auto) 0.03 (0.01-0.08) K/mm3 Sodium (136-145) mEq/L Potassium (3.5-5.1) mEq/L Chloride (98-107) mEq/L Carbon Dioxide (21-32) mEq/L Anion Gap (5-15) BUN (7-18) mg/dL Creatinine (0.55-1.02) mg/dL Est Cr Clr Drug Dosing mL/min Estimated GFR (MDRD) (>60) mL/min BUN/Creatinine Ratio (14-18) Glucose (83-115) mg/dL Calcium (8.5-10.1) mg/dL Magnesium (1.8-2.4) mg/dl Lactate Dehydrogenase (81-234) U/L NT-Pro-B Natriuret Pep (0-450) pg/mL James Results Last 24 Hours: Microbiology 03/24/18 10:30 Gram Stain - Final Thoracentesis Fluid - Right Body Fluid Culture - Preliminary NO GROWTH AFTER 2 DAYS Med Orders - Current: Current Medications Acetaminophen (Tylenol) 650 mg PO Q4H PRN PRN Reason: Pain (Mild 1-3)/fever Hydrocodone Bitart/Acetaminophen ([place] 325-5 Mg) 1 tab PO Q4H PRN PRN Reason: Pain (moderate 4-6) Last Admin: 03/23/18 20:12 Dose: 1 tab Albuterol/Ipratropium (Duoneb 3.0-0.5 Mg/3 Ml) 3 ml NEB Q4H PRN PRN Reason: Shortness Of Breath/wheezing Amlodipine Besylate (Norvasc) 10 mg PO DAILY [facility] Last Admin: 03/26/18 08:22 Dose: 10 mg Apixaban (Eliquis) 10 mg PO BID [facility] Stop: 03/30/18 21:01 Last Admin: 03/26/18 08:26 Dose: 10 mg Apixaban (Eliquis) 5 mg PO BID [facility] Bisacodyl (Dulcolax) 5 mg PO DAILY PRN PRN Reason: Constipation Bumetanide (Bumex) 0.5 mg IVPUSH DAILY [facility] Stop: 03/28/18 09:01 Last Admin: 03/26/18 09:06 Dose: 0.5 mg Docusate Sodium (Colace) 100 mg PO BID PRN PRN Reason: Constipation Hydralazine HCl (Apresoline) 20 mg IVPUSH Q4H PRN PRN Reason: Hypertension Hydrochlorothiazide (Hydrochlorothiazide) 12.5 mg PO BIDDIURETIC [facility] PRN Reason: Pain Hydromorphone HCl (Dilaudid) 0.25 mg IVPUSH Q2H PRN PRN Reason: Pain (severe 7-10) Last Admin: 03/24/18 09:43 Dose: 0.25 mg Promethazine HCl 6.25 mg/ (Sodium Chloride) 50.25 mls @ 100 mls/hr IV Q6H PRN PRN Reason: Nausea/Vomiting Lorazepam (Ativan) 1 mg PO DAILY PRN PRN Reason: Anxiety Last Admin: 03/25/18 21:21 Dose: 1 mg Lorazepam (Ativan) 2 mg IVPUSH Q4H PRN PRN Reason: Seizures Lorazepam (Ativan) 0.25 mg IV Q6H PRN PRN Reason: Anxiety Last Admin: 03/24/18 09:42 Dose: 0.25 mg Losartan Potassium (Cozaar) 100 mg PO DAILY [facility] Last Admin: 03/26/18 08:24 Dose: 100 mg Magnesium Sulfate (Pharmacy To Dose - Magnesium Replacement) 0 dose .XX ASDIRECTED PRN PRN Reason: RX TO WATCH MAG Metoprolol Succinate (Toprol Xl) 50 mg PO DAILY [facility] Last Admin: 03/26/18 08:28 Dose: 50 mg Metoprolol Tartrate (Lopressor) 5 mg IVPUSH Q4H PRN PRN Reason: Tachycardia Mupirocin (Bactroban Oint) 0 gm TOP QID [facility] Last Admin: 03/26/18 08:29 Dose: 1 applic Ondansetron HCl (Zofran) 4 mg IV Q6H PRN PRN Reason: Nausea/Vomiting Polyethylene Glycol (Miralax) 17 gm PO DAILY PRN PRN Reason: Constipation Potassium Chloride (Klor-Con 10) 10 meq PO DAILY [facility] Last Admin: 03/26/18 08:27 Dose: 10 meq Potassium Chloride (Pharmacy To Dose - Potassium Replacement) 0 dose .XX ASDIRECTED PRN PRN Reason: RX TO WATCH K Ropinirole HCl (Requip) 0.5 mg PO BEDTIME [facility] Last Admin: 03/25/18 21:20 Dose: 0.5 mg Rosuvastatin Calcium (Crestor) 5 mg PO DAILY [facility] Last Admin: 03/26/18 08:26 Dose: 5 mg Senna/Docusate Sodium (Senna Plus) 1 tab PO BID PRN PRN Reason: Constipation Sodium Chloride (Saline Flush) 10 ml FLUSH ASDIRECTED PRN PRN Reason: Keep Vein Open Last Admin: 03/23/18 14:34 Dose: 10 ml Temazepam (Restoril) 7.5 mg PO BEDTIME PRN PRN Reason: Sleep Vit A/Vit C/Vit E/Selen/Cu/Zn/Lutei (Icaps Mv) 1 tab PO DAILY [facility] Last Admin: 03/26/18 08:23 Dose: 1 tab Discontinued Medications Apixaban (Eliquis) 10 mg PO BID [facility] Stop: 03/30/18 09:01 Apixaban (Eliquis) 5 mg PO BID [facility] Apixaban (Eliquis) 10 mg PO BID [facility] Stop: 03/31/18 09:01 Bumetanide (Bumex) 0.5 mg IVPUSH ONETIME ONE Stop: 03/25/18 09:28 Last Admin: 03/25/18 09:34 Dose: 0.5 mg Enoxaparin Sodium (Lovenox) 60 mg SUBCUT ONETIME ONE Stop: 03/23/18 21:01 Last Admin: 03/23/18 21:43 Dose: 60 mg Hydrochlorothiazide (Hydrochlorothiazide) 25 mg PO DAILY [facility] Last Admin: 03/26/18 08:24 Dose: 25 mg Hydromorphone HCl (Dilaudid) 0.25 mg IVPUSH Q2H PRN PRN Reason: Pain (severe 7-10) Sodium Chloride (Normal Saline) 500 mls @ 999 mls/hr IV .BOLUS ONE Stop: 03/23/18 16:30 Last Admin: 03/23/18 16:44 Dose: 999 mls/hr Sodium Chloride (Normal Saline) 100 mls @ 60 mls/hr IV ASDIRECTED [facility] Last Admin: 03/23/18 16:37 Dose: 60 mls/hr Magnesium Sulfate 2 gm/ Premix 50 mls @ 25 mls/hr IV ONETIME ONE Stop: 03/24/18 11:59 Last Admin: 03/24/18 10:31 Dose: 25 mls/hr Magnesium Sulfate 2 gm/ Premix 50 mls @ 25 mls/hr IV ONETIME ONE Stop: 03/25/18 12:59 Last Admin: 03/25/18 11:06 Dose: 25 mls/hr Iopamidol (Isovue-370 (76%)) 100 ml IVPUSH ONETIME ONE Stop: 03/23/18 16:20 Last Admin: 03/23/18 16:37 Dose: 80 ml Non-Formulary Medication (Aspirin/Caffeine [Anacin 400-32 Mg Tablet]) 2 tab PO DAILY [facility] Last Admin: 03/25/18 09:34 Dose: Not Given Potassium Chloride (Klor-Con M20) 40 meq PO Q4H [facility] Stop: 03/23/18 23:31 Last Admin: 03/23/18 22:30 Dose: 40 meq Potassium Chloride (Klor-Con M20) 40 meq PO ONETIME ONE Stop: 03/25/18 11:01 Last Admin: 03/25/18 11:06 Dose: 40 meq Sodium Chloride (Saline Flush) 10 ml FLUSH ONETIME ONE Stop: 03/23/18 16:20 Last Admin: 03/23/18 16:37 Dose: 10 ml - Exam Quality Assessment: Supplemental Oxygen, DVT Prophylaxis General: Alert, Oriented, Cooperative Lungs: Normal Respiratory Effort, Decreased Breath Sounds Cardiovascular: Regular Rate, Regular Rhythm GI/Abdominal Exam: Soft, Non-Tender Back Exam: Normal Inspection, Full Range of Motion Extremities: Normal Inspection, Normal Range of Motion, Non-Tender Peripheral Pulses: 2+: Radial (L), Radial (R) Skin: Warm, Dry, Intact Neurological: No New Focal Deficit Psy/Mental Status: Alert, Normal Affect, Normal Mood 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 * Chest CT scan Filing Defect in the Middle Lobe Segmental Pulmonary Artery * Duplex U/S negative for DVT * Offered traditional vs novel anticoagulant--> after weighing risk and benefits ; she wants to be on NOACS; started eliquis 03/25 (initially on lovenox subQ upon admission 03/23) Heart Failure * No known hx/o of it but clinical signs: b/l pleural effusion, shortness of breath, leg edema, and elevated BNP level og 2757, now 1777 (03/26) * CT scan confirms right sided heart failure: marked dilation of right atrium measuring 9 cm in max diameter, cardiomegaly, contrast refluxes into a dilated inferior vena cava and hepatic veins as well as the superior vena cava and tributaries * Heart failure protocol: diuretics, Is/Os, strict fluid/salt restrictions and daily weight check * 2D echo done earlier today * Thyroid panel- TSH abnormal but FT4 is wnl; recommend follow up outpatient B/L Pleural Effusion * Suspect 2/2 Heart Failure +/- Malignancy * Therapeutic/diagnostic thoracentesis performed 03/24 * R>>L * 825 mL of slightly cloudy straw yellow pleural fluid removed * Slightly elevated levels of WBC and lymphocytes * No organisms seen on pathology * Light's Criteria * Pleural fluid protein <2; serum protein 6.8 --> ratio <0.5 * Pleural fluid LDH 117; serum LDH 265 --> ratio < 0.6 * Pleural fluid LDH 117 < 2/3 upper normal limit of 234 * 0/3 criteria met; classified as transudate pleural effusion, likely due to CHF * Supportive Care and Supplemental O2 - slowly come off * Continue low dose intravenous bumex HTN * Still not well controlled * Resume Home BP regimen * Will add HCTZ since Na has now back to normal range * Hydralazine IVP Q4H PRN Minimal Interval Change of a Nodule in the Left Upper Lobe * Chest CT scan finding Resolved: Hypokalemia * K 3.4 --> 4.3--> 3.4 --> 3.6 * 2/2 Diuresis * Resolved, continue to monitor Hypomagnesemia * Mg of 1.6--> 1.7 --> 1.9 * 2/2 Inadequate intake * Resolved, continue to monitor S/p Slightly Elevated Troponin Level * Troponin 0.064 * 2/2 heart strain * Likely resolved Vitamin D Deficiency * Very minimally low at 28.3 (30-100 normal range) * Hold off treatment S/p Sinus Bradycardia * HR in the 50s * Will monitor Chronic: HLD Carotid Stenosis S/p Stent Placement Hx/o Bladder 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 Dr. Fernandez has examined the patient and reviewed the note.
[2018-03-26] MEDS: rOPINIRole 0.25 MG Tab PO SCH (20:40)
[2018-03-26] MEDS: LORazepam 1 MG Tab PO PRN (20:40)
[2018-03-27] MEDS: Hydrochlorothiazide 12.5 MG Cap PO SCH ×2 (06:11→14:13)
[2018-03-27] MEDS: Apixaban 5 MG Tab PO SCH ×2 (08:34→21:34)
[2018-03-27] MEDS: Potassium Chloride 10 MEQ Tab.ER PO SCH (08:34)
[2018-03-27] MEDS: Multivitamins with Minerals/Folic Acid/Lutein/Zeaxanth Tab PO SCH (08:34)
[2018-03-27] MEDS: Losartan 100 MG Tab PO SCH (08:34)
[2018-03-27] MEDS: amLODIPine 10 MG Tab PO SCH (08:34)
[2018-03-27] MEDS: Rosuvastatin 10 MG Tab PO SCH (08:34)
[2018-03-27] MEDS: Metoprolol Succinate 50 MG Tab.ER PO SCH (08:40)
[2018-03-27] MEDS: Bumetanide 1 MG/4 ML MDV IVPUSH SCH (08:41)
[2018-03-27] MEDS: Mupirocin Oint 22 GM Tube TOP SCH ×4 (08:42→21:35)
--- NOTE | 2018-03-27 09:38 | PCM.PN ---
<Gabriela West - Last Filed: 03/27/18 09:51> - General Info Date of Service: 03/27/18 Admission Dx/Problem (Free Text): Admission Diagnosis/Problem Admission Diagnosis/Problem Pulmonary embolism Functional Status: Reports: Pain Controlled, Tolerating Diet, Ambulating - Review of Systems General: Reports: No Symptoms HEENT: Reports: No Symptoms. Denies: Headaches Pulmonary: Reports: No Symptoms. Denies: Shortness of Breath Cardiovascular: Reports: No Symptoms. Denies: Chest Pain Gastrointestinal: Reports: Constipation. Denies: Abdominal Pain, Nausea, Vomiting Genitourinary: Reports: No Symptoms Musculoskeletal: Reports: No Symptoms Skin: Reports: No Symptoms Neurological: Reports: No Symptoms Psychiatric: Reports: No Symptoms Systems Review Comment:: States she is feeling much better today and finding it easier to ambulate. She reports no pain at all. The only symptom she is currently experiencing is constipation, which she states is not unusual for her. - Patient Data Vitals - Most Recent: Last Vital Signs Temp 98.1 F 03/27/18 08:09 Pulse 57 L 03/27/18 08:40 Resp 12 03/27/18 08:09 BP 128/56 L 03/27/18 08:34 Pulse Ox 97 03/27/18 08:32 Weight - Most Recent: 61.235 kg I&O - Last 24 Hours: Intake & Output 03/26/18 03/27/18 03/27/18 22:59 06:59 14:59 Intake Total 675 300 Output Total 975 Balance -300 300 Lab Results Last 24 Hours: Laboratory Results - last 24 hr 03/27/18 Range/Units 06:05 WBC 7.16 (3.98-10.04) K/mm3 RBC 4.34 (3.98-5.22) M/mm3 Hgb 12.9 (11.2-15.7) gm/L Hct 39.8 (34.1-44.9) % MCV 91.7 (79.4-94.8) fl MCH 29.7 (25.6-32.2) pg MCHC 32.4 (32.2-35.5) g/dl RDW Std Deviation 51.9 H (36.4-46.3) fL Plt Count 179 L (182-369) K/mm3 MPV 9.6 (9.4-12.3) fl Neut % (Auto) 61.8 (34.0-71.1) % Lymph % (Auto) 23.9 (19.3-51.7) % Ross % (Auto) 12.4 (4.7-12.5) % Eos % (Auto) 1.5 (0.7-5.8) Baso % (Auto) 0.3 (0.1-1.2) % Neut # (Auto) 4.42 (1.56-6.13) K/mm3 Lymph # (Auto) 1.71 (1.18-3.74) K/mm3 Ross # (Auto) 0.89 H (0.24-0.36) K/mm3 Eos # (Auto) 0.11 (0.04-0.36) K/mm3 Baso # (Auto) 0.02 (0.01-0.08) K/mm3 James Results Last 24 Hours: Microbiology 03/24/18 10:30 Gram Stain - Final Thoracentesis Fluid - Right Body Fluid Culture - Preliminary NO GROWTH AFTER 2 DAYS Med Orders - Current: Current Medications Acetaminophen (Tylenol) 650 mg PO Q4H PRN PRN Reason: Pain (Mild 1-3)/fever Hydrocodone Bitart/Acetaminophen ([place] 325-5 Mg) 1 tab PO Q4H PRN PRN Reason: Pain (moderate 4-6) Last Admin: 03/23/18 20:12 Dose: 1 tab Albuterol/Ipratropium (Duoneb 3.0-0.5 Mg/3 Ml) 3 ml NEB Q4H PRN PRN Reason: Shortness Of Breath/wheezing Amlodipine Besylate (Norvasc) 10 mg PO DAILY [facility] Last Admin: 03/27/18 08:34 Dose: 10 mg Apixaban (Eliquis) 10 mg PO BID [facility] Stop: 03/30/18 21:01 Last Admin: 03/27/18 08:34 Dose: 10 mg Apixaban (Eliquis) 5 mg PO BID [facility] Bisacodyl (Dulcolax) 5 mg PO DAILY PRN PRN Reason: Constipation Bumetanide (Bumex) 0.5 mg IVPUSH DAILY [facility] Stop: 03/28/18 09:01 Last Admin: 03/27/18 08:41 Dose: 0.5 mg Docusate Sodium (Colace) 100 mg PO BID PRN PRN Reason: Constipation Last Admin: 03/26/18 16:47 Dose: 100 mg Hydralazine HCl (Apresoline) 20 mg IVPUSH Q4H PRN PRN Reason: Hypertension Hydrochlorothiazide (Hydrochlorothiazide) 12.5 mg PO BIDDIURETIC YOGESH PRN Reason: Pain Last Admin: 03/27/18 06:11 Dose: 12.5 mg Hydromorphone HCl (Dilaudid) 0.25 mg IVPUSH Q2H PRN PRN Reason: Pain (severe 7-10) Last Admin: 03/24/18 09:43 Dose: 0.25 mg Promethazine HCl 6.25 mg/ (Sodium Chloride) 50.25 mls @ 100 mls/hr IV Q6H PRN PRN Reason: Nausea/Vomiting Lorazepam (Ativan) 1 mg PO DAILY PRN PRN Reason: Anxiety Last Admin: 03/26/18 20:40 Dose: 1 mg Lorazepam (Ativan) 2 mg IVPUSH Q4H PRN PRN Reason: Seizures Lorazepam (Ativan) 0.25 mg IV Q6H PRN PRN Reason: Anxiety Last Admin: 03/24/18 09:42 Dose: 0.25 mg Losartan Potassium (Cozaar) 100 mg PO DAILY [facility] Last Admin: 03/27/18 08:34 Dose: 100 mg Magnesium Sulfate (Pharmacy To Dose - Magnesium Replacement) 0 dose .XX ASDIRECTED PRN PRN Reason: RX TO WATCH MAG Metoprolol Succinate (Toprol Xl) 50 mg PO DAILY [facility] Last Admin: 03/27/18 08:40 Dose: Not Given Metoprolol Tartrate (Lopressor) 5 mg IVPUSH Q4H PRN PRN Reason: Tachycardia Mupirocin (Bactroban Oint) 0 gm TOP QID [facility] Last Admin: 03/27/18 08:42 Dose: 1 applic Ondansetron HCl (Zofran) 4 mg IV Q6H PRN PRN Reason: Nausea/Vomiting Polyethylene Glycol (Miralax) 17 gm PO DAILY PRN PRN Reason: Constipation Last Admin: 03/27/18 08:53 Dose: 17 gm Potassium Chloride (Klor-Con 10) 10 meq PO DAILY [facility] Last Admin: 03/27/18 08:34 Dose: 10 meq Potassium Chloride (Pharmacy To Dose - Potassium Replacement) 0 dose .XX ASDIRECTED PRN PRN Reason: RX TO WATCH K Ropinirole HCl (Requip) 0.5 mg PO BEDTIME [facility] Last Admin: 03/26/18 20:40 Dose: 0.5 mg Rosuvastatin Calcium (Crestor) 5 mg PO DAILY [facility] Last Admin: 03/27/18 08:34 Dose: 5 mg Senna/Docusate Sodium (Senna Plus) 1 tab PO BID PRN PRN Reason: Constipation Sodium Chloride (Saline Flush) 10 ml FLUSH ASDIRECTED PRN PRN Reason: Keep Vein Open Last Admin: 03/23/18 14:34 Dose: 10 ml Temazepam (Restoril) 7.5 mg PO BEDTIME PRN PRN Reason: Sleep Vit A/Vit C/Vit E/Selen/Cu/Zn/Lutei (Icaps Mv) 1 tab PO DAILY [facility] Last Admin: 03/27/18 08:34 Dose: 1 tab Discontinued Medications Apixaban (Eliquis) 10 mg PO BID [facility] Stop: 03/30/18 09:01 Apixaban (Eliquis) 5 mg PO BID [facility] Apixaban (Eliquis) 10 mg PO BID [facility] Stop: 03/31/18 09:01 Bumetanide (Bumex) 0.5 mg IVPUSH ONETIME ONE Stop: 03/25/18 09:28 Last Admin: 03/25/18 09:34 Dose: 0.5 mg Enoxaparin Sodium (Lovenox) 60 mg SUBCUT ONETIME ONE Stop: 03/23/18 21:01 Last Admin: 03/23/18 21:43 Dose: 60 mg Hydrochlorothiazide (Hydrochlorothiazide) 25 mg PO DAILY [facility] Last Admin: 03/26/18 08:24 Dose: 25 mg Hydromorphone HCl (Dilaudid) 0.25 mg IVPUSH Q2H PRN PRN Reason: Pain (severe 7-10) Sodium Chloride (Normal Saline) 500 mls @ 999 mls/hr IV .BOLUS ONE Stop: 03/23/18 16:30 Last Admin: 03/23/18 16:44 Dose: 999 mls/hr Sodium Chloride (Normal Saline) 100 mls @ 60 mls/hr IV ASDIRECTED [facility] Last Admin: 03/23/18 16:37 Dose: 60 mls/hr Magnesium Sulfate 2 gm/ Premix 50 mls @ 25 mls/hr IV ONETIME ONE Stop: 03/24/18 11:59 Last Admin: 03/24/18 10:31 Dose: 25 mls/hr Magnesium Sulfate 2 gm/ Premix 50 mls @ 25 mls/hr IV ONETIME ONE Stop: 03/25/18 12:59 Last Admin: 03/25/18 11:06 Dose: 25 mls/hr Iopamidol (Isovue-370 (76%)) 100 ml IVPUSH ONETIME ONE Stop: 03/23/18 16:20 Last Admin: 03/23/18 16:37 Dose: 80 ml Non-Formulary Medication (Aspirin/Caffeine [Anacin 400-32 Mg Tablet]) 2 tab PO DAILY [facility] Last Admin: 03/25/18 09:34 Dose: Not Given Potassium Chloride (Klor-Con M20) 40 meq PO Q4H [facility] Stop: 03/23/18 23:31 Last Admin: 03/23/18 22:30 Dose: 40 meq Potassium Chloride (Klor-Con M20) 40 meq PO ONETIME ONE Stop: 03/25/18 11:01 Last Admin: 03/25/18 11:06 Dose: 40 meq Sodium Chloride (Saline Flush) 10 ml FLUSH ONETIME ONE Stop: 03/23/18 16:20 Last Admin: 03/23/18 16:37 Dose: 10 ml - Exam Quality Assessment: Supplemental Oxygen, DVT Prophylaxis General: Alert, Oriented, Cooperative Lungs: Clear to Auscultation, Normal Respiratory Effort Cardiovascular: Regular Rate, Regular Rhythm GI/Abdominal Exam: Normal Bowel Sounds, Soft, Non-Tender, No Distention (Female) Exam: Deferred Back Exam: Normal Inspection Extremities: Normal Inspection, Normal Range of Motion, Non-Tender Peripheral Pulses: 2+: Radial (L), Radial (R), Posterior Tibial (L), Posterior Tibial (R) Skin: Warm, Dry, Intact Neurological: No New Focal Deficit Psy/Mental Status: Alert, Normal Affect, Normal Mood Physical Findings Comments:: Patient appears well today, alert and cooperative. No abnormalities found upon exam. She is still on supplemental O2. 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 * Chest CT scan Filling Defect in the Middle Lobe Segmental Pulmonary Artery * Duplex U/S negative for DVT * Offered traditional vs novel anticoagulant--> after weighing risk and benefits ; she wants to be on NOACS; started eliquis 03/25 (initially on lovenox subQ upon admission 03/23) Heart Failure * No known hx/o of it but clinical signs: b/l pleural effusion, shortness of breath, leg edema, and elevated BNP [place] og 2757, now 1777 (03/26) * CT scan confirms right sided heart failure: marked dilation of right atrium measuring 9 cm in max diameter, cardiomegaly, contrast refluxes into a dilated inferior vena cava and hepatic veins as well as the superior vena cava and tributaries * Heart failure protocol: diuretics, Is/Os, strict fluid/salt restrictions and daily weight check * 2D echo done earlier today * Thyroid panel- TSH abnormal but FT4 is wnl; recommend follow up outpatient B/L Pleural Effusion * Suspect 2/2 Heart Failure +/- Malignancy * Therapeutic/diagnostic thoracentesis performed 03/24 * R>>L * 825 mL of slightly cloudy straw yellow pleural fluid removed * Slightly elevated levels of WBC and lymphocytes * No organisms seen on pathology * Light's Criteria * Pleural fluid protein <2; serum protein 6.8 --> ratio <0.5 * Pleural fluid LDH 117; serum LDH 265 --> ratio < 0.6 * Pleural fluid LDH 117 < 2/3 upper normal limit of 234 * 0/3 criteria met; classified as transudate pleural effusion, likely due to CHF * Supportive Care and Supplemental O2 - slowly come off * Continue low dose intravenous bumex Minimal Interval Change of a Nodule in the Left Upper Lobe * Chest CT scan finding Resolved: HTN * Now well controlled - recent BPs ~128/56 * Continue home BP regimen + HCTZ + Hydralazine IVP Q4H PRN Hypokalemia * K 3.4 --> 4.3--> 3.4 --> 3.6 * 2/2 Diuresis * Resolved, continue to monitor Hypomagnesemia * Mg of 1.6--> 1.7 --> 1.9 * 2/2 Inadequate intake * Resolved, continue to monitor S/p Slightly Elevated Troponin Level * Troponin 0.064 * 2/2 heart strain * Likely resolved Vitamin D Deficiency * Very minimally low at 28.3 (30-100 normal range) * Hold off treatment S/p Sinus Bradycardia * HR in the 50s * Will monitor Chronic: HLD Carotid Stenosis S/p Stent Placement Hx/o Bladder CA Hx/o Skin CA S/p Surgical Resection Progressive Changes of Centrilobular Emphysema with hx/o Smoking Anxiety Plan: She remains clinically stable Continue current treatment Routine AM Labs Continue PT/OT/RT Fall Precautions Awaiting results of 2D echo SW/CM for d/c planning PE Tx/DVT PPx: Eliquis Protocol Titrate to slowly come off Supplemental O2 after Thoracentesis Encourage IS to use as directed Additional orders as above Code status: DNR/DNI Gabriela West, MS-3. Dr. Fernandez has examined the patient and reviewed the note. <Twila Fernandez T - Last Filed: 03/27/18 14:42> - Patient Data Vitals - Most Recent: Last Vital Signs Temp 36.8 C 03/27/18 11:51 Pulse 57 L 03/27/18 11:51 Resp 16 03/27/18 11:51 BP 135/74 03/27/18 11:51 Pulse Ox 92 L 03/27/18 14:00 I&O - Last 24 Hours: Intake & Output 03/26/18 03/27/18 03/27/18 22:59 06:59 14:59 Intake Total 675 300 240 Output Total 975 Balance -300 300 240 Lab Results Last 24 Hours: Laboratory Results - last 24 hr 03/27/18 Range/Units 06:05 WBC 7.16 (3.98-10.04) K/mm3 RBC 4.34 (3.98-5.22) M/mm3 Hgb 12.9 (11.2-15.7) gm/L Hct 39.8 (34.1-44.9) % MCV 91.7 (79.4-94.8) fl MCH 29.7 (25.6-32.2) pg MCHC 32.4 (32.2-35.5) g/dl RDW Std Deviation 51.9 H (36.4-46.3) fL Plt Count 179 L (182-369) K/mm3 MPV 9.6 (9.4-12.3) fl Neut % (Auto) 61.8 (34.0-71.1) % Lymph % (Auto) 23.9 (19.3-51.7) % Ross % (Auto) 12.4 (4.7-12.5) % Eos % (Auto) 1.5 (0.7-5.8) Baso % (Auto) 0.3 (0.1-1.2) % Neut # (Auto) 4.42 (1.56-6.13) K/mm3 Lymph # (Auto) 1.71 (1.18-3.74) K/mm3 Ross # (Auto) 0.89 H (0.24-0.36) K/mm3 Eos # (Auto) 0.11 (0.04-0.36) K/mm3 Baso # (Auto) 0.02 (0.01-0.08) K/mm3 James Results Last 24 Hours: Microbiology 03/24/18 10:30 Gram Stain - Final Thoracentesis Fluid - Right Body Fluid Culture - Preliminary NO GROWTH AFTER 3 DAYS Med Orders - Current: Current Medications Acetaminophen (Tylenol) 650 mg PO Q4H PRN PRN Reason: Pain (Mild 1-3)/fever Hydrocodone Bitart/Acetaminophen ([place] 325-5 Mg) 1 tab PO Q4H PRN PRN Reason: Pain (moderate 4-6) Last Admin: 03/23/18 20:12 Dose: 1 tab Albuterol/Ipratropium (Duoneb 3.0-0.5 Mg/3 Ml) 3 ml NEB Q4H PRN PRN Reason: Shortness Of Breath/wheezing Amlodipine Besylate (Norvasc) 10 mg PO DAILY [facility] Last Admin: 03/27/18 08:34 Dose: 10 mg Apixaban (Eliquis) 10 mg PO BID [facility] Stop: 03/30/18 21:01 Last Admin: 03/27/18 08:34 Dose: 10 mg Apixaban (Eliquis) 5 mg PO BID [facility] Bisacodyl (Dulcolax) 5 mg PO DAILY PRN PRN Reason: Constipation Bumetanide (Bumex) 0.5 mg IVPUSH DAILY [facility] Stop: 03/28/18 09:01 Last Admin: 03/27/18 08:41 Dose: 0.5 mg Docusate Sodium (Colace) 100 mg PO BID PRN PRN Reason: Constipation Last Admin: 03/26/18 16:47 Dose: 100 mg Hydralazine HCl (Apresoline) 20 mg IVPUSH Q4H PRN PRN Reason: Hypertension Hydrochlorothiazide (Hydrochlorothiazide) 12.5 mg PO BIDDIURETIC [facility] PRN Reason: Pain Last Admin: 03/27/18 14:13 Dose: 12.5 mg Hydromorphone HCl (Dilaudid) 0.25 mg IVPUSH Q2H PRN PRN Reason: Pain (severe 7-10) Last Admin: 03/24/18 09:43 Dose: 0.25 mg Promethazine HCl 6.25 mg/ (Sodium Chloride) 50.25 mls @ 100 mls/hr IV Q6H PRN PRN Reason: Nausea/Vomiting Lorazepam (Ativan) 1 mg PO DAILY PRN PRN Reason: Anxiety Last Admin: 03/26/18 20:40 Dose: 1 mg Lorazepam (Ativan) 2 mg IVPUSH Q4H PRN PRN Reason: Seizures Lorazepam (Ativan) 0.25 mg IV Q6H PRN PRN Reason: Anxiety Last Admin: 03/24/18 09:42 Dose: 0.25 mg Losartan Potassium (Cozaar) 100 mg PO DAILY [facility] Last Admin: 03/27/18 08:34 Dose: 100 mg Magnesium Sulfate (Pharmacy To Dose - Magnesium Replacement) 0 dose .XX ASDIRECTED PRN PRN Reason: RX TO WATCH MAG Metoprolol Succinate (Toprol Xl) 50 mg PO DAILY [facility] Last Admin: 03/27/18 08:40 Dose: Not Given Metoprolol Tartrate (Lopressor) 5 mg IVPUSH Q4H PRN PRN Reason: Tachycardia Mupirocin (Bactroban Oint) 0 gm TOP QID [facility] Last Admin: 03/27/18 14:13 Dose: 1 applic Ondansetron HCl (Zofran) 4 mg IV Q6H PRN PRN Reason: Nausea/Vomiting Polyethylene Glycol (Miralax) 17 gm PO DAILY PRN PRN Reason: Constipation Last Admin: 03/27/18 08:53 Dose: 17 gm Potassium Chloride (Klor-Con 10) 10 meq PO DAILY [facility] Last Admin: 03/27/18 08:34 Dose: 10 meq Potassium Chloride (Pharmacy To Dose - Potassium Replacement) 0 dose .XX ASDIRECTED PRN PRN Reason: RX TO WATCH K Ropinirole HCl (Requip) 0.5 mg PO BEDTIME [facility] Last Admin: 03/26/18 20:40 Dose: 0.5 mg Rosuvastatin Calcium (Crestor) 5 mg PO DAILY [facility] Last Admin: 03/27/18 08:34 Dose: 5 mg Senna/Docusate Sodium (Senna Plus) 1 tab PO BID PRN PRN Reason: Constipation Sodium Chloride (Saline Flush) 10 ml FLUSH ASDIRECTED PRN PRN Reason: Keep Vein Open Last Admin: 03/23/18 14:34 Dose: 10 ml Temazepam (Restoril) 7.5 mg PO BEDTIME PRN PRN Reason: Sleep Vit A/Vit C/Vit E/Selen/Cu/Zn/Lutei (Icaps Mv) 1 tab PO DAILY [facility] Last Admin: 03/27/18 08:34 Dose: 1 tab Discontinued Medications Apixaban (Eliquis) 10 mg PO BID [facility] Stop: 03/30/18 09:01 Apixaban (Eliquis) 5 mg PO BID [facility] Apixaban (Eliquis) 10 mg PO BID [facility] Stop: 03/31/18 09:01 Bumetanide (Bumex) 0.5 mg IVPUSH ONETIME ONE Stop: 03/25/18 09:28 Last Admin: 03/25/18 09:34 Dose: 0.5 mg Enoxaparin Sodium (Lovenox) 60 mg SUBCUT ONETIME ONE Stop: 03/23/18 21:01 Last Admin: 03/23/18 21:43 Dose: 60 mg Hydrochlorothiazide (Hydrochlorothiazide) 25 mg PO DAILY [facility] Last Admin: 03/26/18 08:24 Dose: 25 mg Hydromorphone HCl (Dilaudid) 0.25 mg IVPUSH Q2H PRN PRN Reason: Pain (severe 7-10) Sodium Chloride (Normal Saline) 500 mls @ 999 mls/hr IV .BOLUS ONE Stop: 03/23/18 16:30 Last Admin: 03/23/18 16:44 Dose: 999 mls/hr Sodium Chloride (Normal Saline) 100 mls @ 60 mls/hr IV ASDIRECTED [facility] Last Admin: 03/23/18 16:37 Dose: 60 mls/hr Magnesium Sulfate 2 gm/ Premix 50 mls @ 25 mls/hr IV ONETIME ONE Stop: 03/24/18 11:59 Last Admin: 03/24/18 10:31 Dose: 25 mls/hr Magnesium Sulfate 2 gm/ Premix 50 mls @ 25 mls/hr IV ONETIME ONE Stop: 03/25/18 12:59 Last Admin: 03/25/18 11:06 Dose: 25 mls/hr Iopamidol (Isovue-370 (76%)) 100 ml IVPUSH ONETIME ONE Stop: 03/23/18 16:20 Last Admin: 03/23/18 16:37 Dose: 80 ml Non-Formulary Medication (Aspirin/Caffeine [Anacin 400-32 Mg Tablet]) 2 tab PO DAILY [facility] Last Admin: 03/25/18 09:34 Dose: Not Given Potassium Chloride (Klor-Con M20) 40 meq PO Q4H [facility] Stop: 03/23/18 23:31 Last Admin: 03/23/18 22:30 Dose: 40 meq Potassium Chloride (Klor-Con M20) 40 meq PO ONETIME ONE Stop: 03/25/18 11:01 Last Admin: 03/25/18 11:06 Dose: 40 meq Sodium Chloride (Saline Flush) 10 ml FLUSH ONETIME ONE Stop: 03/23/18 16:20 Last Admin: 03/23/18 16:37 Dose: 10 ml - My Orders Last 24 Hours: My Active Orders 03/27/18 06:00 hydroCHLOROthiazide 12.5 mg PO BIDDIURETIC 03/28/18 05:11 CBC WITH AUTO DIFF [HEME] AM 03/31/18 09:00 Apixaban [Eliquis] 5 mg PO BID - Plan Plan:: The patient was seen and examined at bedside in concert with the medical student. The assessment and plans were discussed and agreed upon with me. Patient rested well last night. She feels good and reports no complaints. She is now on 1L NC sating at 91-94%. LOS > 96 hrs pending 2D echo result. She may need supplemental O2 upon discharge so we will have RT to perform O2 study.
[2018-03-27] MEDS: rOPINIRole 0.25 MG Tab PO SCH (21:35)
[2018-03-27] MEDS: LORazepam 1 MG Tab PO PRN (21:35)
[2018-03-28] MEDS: Acetaminophen/HYDROcodone 325-5 MG Tab PO PRN ×2 (04:10→10:44)
[2018-03-28] MEDS: Hydrochlorothiazide 12.5 MG Cap PO SCH (06:36)
[2018-03-28] MEDS: amLODIPine 10 MG Tab PO SCH (08:46)
[2018-03-28] MEDS: Potassium Chloride 10 MEQ Tab.ER PO SCH (08:46)
[2018-03-28] MEDS: Multivitamins with Minerals/Folic Acid/Lutein/Zeaxanth Tab PO SCH (08:46)
[2018-03-28] MEDS: Apixaban 5 MG Tab PO SCH (08:46)
[2018-03-28] MEDS: Losartan 100 MG Tab PO SCH (08:46)
[2018-03-28] MEDS: Rosuvastatin 10 MG Tab PO SCH (08:46)
[2018-03-28] MEDS: Metoprolol Succinate 50 MG Tab.ER PO SCH (08:47)
[2018-03-28] MEDS: Mupirocin Oint 22 GM Tube TOP SCH (08:47)
[2018-03-28] MEDS: Bumetanide 1 MG/4 ML MDV IVPUSH SCH (08:47)
--- NOTE | 2018-03-28 10:11 | PCM.DCSUM1 ---
<Gabriela West - Last Filed: 03/28/18 12:04> Discharge Summary - Hospital Course Brief History: 87 y/o elderly white female with past medical hx/o HTN, HLD, Carotid Stenosis S/p Stent Placement, Hx/o Bladder CA, Hx/o Skin CA S/p Surgical Resection, Chronic Leg Edema, and Emphysema with hx/o Smoking who presented to the ER 03/23 with complaints of worsening dyspnea, hypoxia, dry cough, and pleuritic pain with radiation to the right shoulder. She denied any fever but reported some chills. Her symptoms had been gradually getting worse in the week prior. Patient carries a history of smoking cigarettes but quit 3 years ago when she was diagnosed with bladder cancer. Recently, she underwent surgical resection of a skin cancer on her lower extremity. Her initial workup in the emergency department shows a fairly unremarkable CBC. Her coagulation studies however show PT of 12.5, INR of 1.15, and d-dimer of 3.28. Her chemistry is significant for sodium of 34, creatinine of 1.1, total bilirubin of 1.1, AST of 47, initial troponin of 0.064, CRP of 1.9, proBNP of 2757, and albumin of 3.2. Her duplex ultrasound studies show no evidence of deep venous the within the right lower extremity or within the left common femoral vein. Mild calf edema noted. Her chest CT scan report reads interval development of a moderate right and small left pleural effusion. Filling defect in the middle lobe segmental pulmonary artery. Marked dilatation of the right atrium measuring 9 cm in the maximum diameter. No significant dilatation of the right ventricle. Contrast flexures into a dilated IVC and hepatic veins as well as the SVC and tributaries. Progressive fibrotic change both apices. Progressive changes of centrilobular emphysema and Minimal interval enlargement of a nodule in the left upper lobe. Patient was admitted primarily for medical treatment of PE and Acute Congestive Heart Failure. She is DNR/DNI. Diagnosis: Stroke: No Modified Clinch Scale: No Symptoms at All Modified Anuja Scale Score: 0 - Discharge Data Discharge Date: 03/28/18 Discharge Disposition: Home, Self-Care 01 Condition: Good - Discharge Diagnosis/Problem(s) (1) Heart failure SNOMED Code(s): 15462080 ICD Code: I50.9 - HEART FAILURE, UNSPECIFIED Status: Acute Qualifiers: Heart failure type: systolic Heart failure chronicity: acute Qualified Code(s): I50.21 - Acute systolic (congestive) heart failure (2) Pleural effusion SNOMED Code(s): 23504080 ICD Code: J90 - PLEURAL EFFUSION, NOT ELSEWHERE CLASSIFIED Status: Acute (3) Pulmonary embolism SNOMED Code(s): 10838894 ICD Code: I26.99 - OTHER PULMONARY EMBOLISM WITHOUT ACUTE COR PULMONALE Status: Acute (4) Elevated troponin SNOMED Code(s): 189629585, 450832390, 175564848 ICD Code: R74.8 - ABNORMAL LEVELS OF OTHER SERUM ENZYMES Status: Resolved (5) HTN (hypertension) SNOMED Code(s): 91982197 ICD Code: I10 - ESSENTIAL (PRIMARY) HYPERTENSION Status: Resolved Qualifiers: Hypertension type: essential hypertension Qualified Code(s): I10 - Essential (primary) hypertension (6) Hypokalemia SNOMED Code(s): 06401101 ICD Code: E87.6 - HYPOKALEMIA Status: Resolved (7) Hypomagnesemia SNOMED Code(s): 015996863 ICD Code: E83.42 - HYPOMAGNESEMIA Status: Resolved (8) Sinus bradycardia SNOMED Code(s): 88229337 ICD Code: R00.1 - BRADYCARDIA, UNSPECIFIED Status: Resolved - Patient Summary/Data Consults: Consultations 03/23/18 19:07 Consult to Case Management [CONS] Routine Consult to Multimedia Manager [CONS] Routine Consult to Spiritual Care [CONS] Routine Respiratory Care Assess and Treatment [CONS] Routine Hospital Course: 87 y/o female was admitted for management of PE and CHF on 03/23/18. Initial presentation to the ER included SOB and pleuritic chest pain. Chest CT performed at that time confirmed diagnoses of pulmonary embolism, bilateral pleural effusion, and right-sided heart failure. The patient did not have a previous history of heart failure but was experiencing signs and symptoms consistent with this diagnosis. History was otherwise significant for bladder cancer 3 years ago, recent treatment of skin cancer, carotid stent, and emphysema. While in the ER, patient was initially started on lovenox subQ. Heart failure protocol, including diuretics, fluid/salt restriction, Is/Os, and daily weight check, was initiated upon admission. She was also started on supplemental oxygen. She was monitored with telemetry throughout her stay. Mild hypokalemia, hypomagnesemia, and vitamin D deficiency were addressed and have now resolved. Hypertension was poorly controlled upon admission. Medications were adjusted and blood pressure is now improved. The pleural effusion was thought to be provoked by either heart failure or malignancy. The patient agreed to a diagnostic and therapeutic thoracentesis, which was performed 03/24, the morning after admission. 825 mL of clear yellow fluid was extracted. Cultures of this fluid were negative. Samples were taken for cytology to rule out malignancy, which was found to be negative 03/28. After the thoracentesis, the patient was switched from lovenox to eliquis following discussion of risks and benefits of traditional vs. novel anticoagulants. Light' s criteria is consistent with transudate pleural effusion, likely provoked by heart failure. 2D echo was performed 03/26 to evaluate cardiac function. Results returned 03/28 and were consistent with diagnosis of right-sided heart failure with preserved ejection fraction and valve disease. Patient was informed and understands diagnosis. - Patient Instructions Diet: Heart Healthy Diet, Usual Diet as Tolerated, Low Sodium, Fluid Restriction Fluid Restriction: 2.5 L Activity: As Tolerated Driving: Do Not Drive Showering/Bathing: May Shower Notify Provider of: Fever, Increased Pain, Swelling and Redness, Drainage, Nausea and/or Vomiting Other/Special Instructions: - Please take all new medications as directed. - Resume all home medications as usual. - Continue routine home activities as tolerated. - Follow daily salt/fluid restrictions. - Take 2 pills of lasix for sudden onset of shortness of breath or increased edema. - Continue to use IS (incentive spirometry) as directed. - Continue supplemental O2 as needed for hypoxia. - Check you vitals at least 3x/day and 3-4x/week. Show log on follow up appointment with your PCP. - Call your family doctor for any questions or concerns after discharge. - Follow up with PCP in 1-2 week(s). - Come back or seek immediate care should your symptoms persist or get worse - Discharge Plan *PRESCRIPTION DRUG MONITORING PROGRAM REVIEWED*: No *COPY OF PRESCRIPTION DRUG MONITORING REPORT IN PATIENT OSMANI: No Prescriptions/Med Rec: Apixaban [Eliquis] 5 mg PO ASDIRECTED #60 tablet Aspirin 81 mg PO BEDTIME #30 tab.chew Furosemide [Lasix] 20 mg PO ASDIRECTED PRN #90 tablet PRN Reason: Heart Failure Home Medications: Home Meds LORazepam 1 mg PO DAILY PRN 03/23/18 [History] Lutein/Minerals/Vit A,C & E [Ocuvite] 1 tab PO DAILY 03/23/18 [History] Potassium Chloride [Klor-Con Sprinkle] 10 meq PO DAILY 03/23/18 [History] Rosuvastatin [Crestor] 5 mg PO DAILY 03/23/18 [History] rOPINIRole HCl [Requip] 0.5 mg PO BEDTIME 03/23/18 [History] Doxycycline [Vibramycin] 1 tab PO BID 03/24/18 [History] Mupirocin Oint [Bactroban Oint] 1 applic TOP QID 03/24/18 [History] Apixaban [Eliquis] 5 mg PO ASDIRECTED #60 tablet 03/28/18 [Rx] Aspirin 81 mg PO BEDTIME #30 tab.chew 03/28/18 [Rx] Furosemide [Lasix] 20 mg PO ASDIRECTED PRN #90 tablet 03/28/18 [Rx] Losartan/Hydrochlorothiazide [Hyzaar 100-25 Tablet] 1 each PO DAILY #0 03/28/18 [Rx] Metoprolol Succinate [Toprol Xl] 50 mg PO DAILY #0 03/28/18 [Rx] amLODIPine Besylate [Norvasc] 10 mg PO DAILY #0 03/28/18 [Rx] Patient Handouts: Hypomagnesemia, Hypokalemia, Bradycardia, Adult, Pulmonary Embolism, Hypertension, [id number], Pleural Effusion, Heart Failure, Easy-to- Read Referrals: Cy Joiner MD [Primary Care Provider] - 04/11/18 4:45 pm (Please follow up with Dr. Joiner on MondayApr 11 at 4:45pm) - Discharge Summary/Plan Comment Discharge Summary/Plan Comment: Patient was instructed to continue home medications and take new medications as prescribed following discharge. She is to continue heart failure protocol and heart-healthy diet at home. Upon discharge she is in stable condition. She is to monitor vitals and follow-up with PCP Dr. Joiner. She was told to return if symptoms return or worse. - General Info Date of Service: 03/28/18 Functional Status: Reports: Tolerating Diet, Ambulating - Review of Systems General: Reports: No Symptoms HEENT: Reports: No Symptoms. Denies: Headaches Pulmonary: Reports: No Symptoms. Denies: Shortness of Breath, Cough, Wheezing Cardiovascular: Reports: No Symptoms. Denies: Chest Pain, Dyspnea on Exertion Gastrointestinal: Reports: No Symptoms. Denies: Abdominal Pain, Constipation, Diarrhea, Nausea, Vomiting Genitourinary: Reports: No Symptoms, Pain (left groin) Musculoskeletal: Reports: Leg Pain (left upper thigh) Skin: Reports: No Symptoms Neurological: Reports: No Symptoms Psychiatric: Reports: No Symptoms Systems Review Comment: Patient is feeling well today though she reports some pain in her left upper thigh and left groin. She says this happens to her occasionally and feels that it is related to her sitting with her legs up in her recliner for too long yesterday. She has been ambulating today but finds it slightly difficult with the pain. The constipation she was experiencing yesterday has resolved as she had a BM yesterday evening. She otherwise reports no new symptoms and has no other pain today. She feels ready to return home. - Patient Data Vitals - Most Recent: Last Vital Signs Temp 98.5 F 03/28/18 08:00 Pulse 65 03/28/18 08:47 Resp 16 03/28/18 07:53 BP 124/69 03/28/18 08:47 Pulse Ox 92 L 03/28/18 08:00 Weight - Most Recent: 60.056 kg I&O - Last 24 hours: Intake & Output 03/27/18 03/28/18 03/28/18 22:59 06:59 14:59 Intake Total 700 300 Output Total 1050 650 Balance -350 -350 Lab Results - Last 24 hrs: Laboratory Results - last 24 hr 03/28/18 03/28/18 Range/Units 06:25 06:25 WBC 9.00 (3.98-10.04) K/mm3 RBC 4.23 (3.98-5.22) M/mm3 Hgb 12.9 (11.2-15.7) gm/L Hct 38.7 (34.1-44.9) % MCV 91.5 (79.4-94.8) fl MCH 30.5 (25.6-32.2) pg MCHC 33.3 (32.2-35.5) g/dl RDW Std Deviation 51.4 H (36.4-46.3) fL Plt Count 170 L (182-369) K/mm3 MPV 9.6 (9.4-12.3) fl Neut % (Auto) 73.3 H (34.0-71.1) % Lymph % (Auto) 14.6 L (19.3-51.7) % Beckham % (Auto) 11.1 (4.7-12.5) % Eos % (Auto) 0.6 L (0.7-5.8) Baso % (Auto) 0.2 (0.1-1.2) % Neut # (Auto) 6.60 H (1.56-6.13) K/mm3 Lymph # (Auto) 1.31 (1.18-3.74) K/mm3 Beckham # (Auto) 1.00 H (0.24-0.36) K/mm3 Eos # (Auto) 0.05 (0.04-0.36) K/mm3 Baso # (Auto) 0.02 (0.01-0.08) K/mm3 NT-Pro-B Natriuret Pep 1660 H (0-450) pg/mL NEHA Results - Last 24 hrs: Microbiology 03/24/18 10:30 Gram Stain - Final Thoracentesis Fluid - Right Body Fluid Culture - Preliminary NO GROWTH AFTER 4 DAYS 03/24/18 10:30 Acid Fast Bacilli Smear - Final Thoracentesis Fluid - Right Med Orders - Current: Current Medications Acetaminophen (Tylenol) 650 mg PO Q4H PRN PRN Reason: Pain (Mild 1-3)/fever Hydrocodone Bitart/Acetaminophen ([place] 325-5 Mg) 1 tab PO Q4H PRN PRN Reason: Pain (moderate 4-6) Last Admin: 03/28/18 04:10 Dose: 1 tab Albuterol/Ipratropium (Duoneb 3.0-0.5 Mg/3 Ml) 3 ml NEB Q4H PRN PRN Reason: Shortness Of Breath/wheezing Amlodipine Besylate (Norvasc) 10 mg PO DAILY [facility] Last Admin: 03/28/18 08:46 Dose: 10 mg Apixaban (Eliquis) 10 mg PO BID [facility] Stop: 03/30/18 21:01 Last Admin: 03/28/18 08:46 Dose: 10 mg Apixaban (Eliquis) 5 mg PO BID [facility] Bisacodyl (Dulcolax) 5 mg PO DAILY PRN PRN Reason: Constipation Docusate Sodium (Colace) 100 mg PO BID PRN PRN Reason: Constipation Last Admin: 03/26/18 16:47 Dose: 100 mg Hydralazine HCl (Apresoline) 20 mg IVPUSH Q4H PRN PRN Reason: Hypertension Hydrochlorothiazide (Hydrochlorothiazide) 12.5 mg PO BIDDIURETIC [facility] PRN Reason: Pain Last Admin: 03/28/18 06:36 Dose: 12.5 mg Hydromorphone HCl (Dilaudid) 0.25 mg IVPUSH Q2H PRN PRN Reason: Pain (severe 7-10) Last Admin: 03/24/18 09:43 Dose: 0.25 mg Promethazine HCl 6.25 mg/ (Sodium Chloride) 50.25 mls @ 100 mls/hr IV Q6H PRN PRN Reason: Nausea/Vomiting Lorazepam (Ativan) 1 mg PO DAILY PRN PRN Reason: Anxiety Last Admin: 03/27/18 21:35 Dose: 1 mg Lorazepam (Ativan) 2 mg IVPUSH Q4H PRN PRN Reason: Seizures Lorazepam (Ativan) 0.25 mg IV Q6H PRN PRN Reason: Anxiety Last Admin: 03/24/18 09:42 Dose: 0.25 mg Losartan Potassium (Cozaar) 100 mg PO DAILY [facility] Last Admin: 03/28/18 08:46 Dose: 100 mg Magnesium Sulfate (Pharmacy To Dose - Magnesium Replacement) 0 dose .XX ASDIRECTED PRN PRN Reason: RX TO WATCH MAG Metoprolol Succinate (Toprol Xl) 50 mg PO DAILY [facility] Last Admin: 03/28/18 08:47 Dose: 50 mg Metoprolol Tartrate (Lopressor) 5 mg IVPUSH Q4H PRN PRN Reason: Tachycardia Mupirocin (Bactroban Oint) 0 gm TOP QID [facility] Last Admin: 03/28/18 08:47 Dose: 1 applic Ondansetron HCl (Zofran) 4 mg IV Q6H PRN PRN Reason: Nausea/Vomiting Polyethylene Glycol (Miralax) 17 gm PO DAILY PRN PRN Reason: Constipation Last Admin: 03/27/18 08:53 Dose: 17 gm Potassium Chloride (Klor-Con 10) 10 meq PO DAILY [facility] Last Admin: 03/28/18 08:46 Dose: 10 meq Potassium Chloride (Pharmacy To Dose - Potassium Replacement) 0 dose .XX ASDIRECTED PRN PRN Reason: RX TO WATCH K Ropinirole HCl (Requip) 0.5 mg PO BEDTIME [facility] Last Admin: 03/27/18 21:35 Dose: 0.5 mg Rosuvastatin Calcium (Crestor) 5 mg PO DAILY [facility] Last Admin: 03/28/18 08:46 Dose: 5 mg Senna/Docusate Sodium (Senna Plus) 1 tab PO BID PRN PRN Reason: Constipation Sodium Chloride (Saline Flush) 10 ml FLUSH ASDIRECTED PRN PRN Reason: Keep Vein Open Last Admin: 03/23/18 14:34 Dose: 10 ml Temazepam (Restoril) 7.5 mg PO BEDTIME PRN PRN Reason: Sleep Vit A/Vit C/Vit E/Selen/Cu/Zn/Lutei (Icaps Mv) 1 tab PO DAILY [facility] Last Admin: 03/28/18 08:46 Dose: 1 tab Discontinued Medications Apixaban (Eliquis) 10 mg PO BID [facility] Stop: 03/30/18 09:01 Apixaban (Eliquis) 5 mg PO BID [facility] Apixaban (Eliquis) 10 mg PO BID [facility] Stop: 03/31/18 09:01 Bumetanide (Bumex) 0.5 mg IVPUSH ONETIME ONE Stop: 03/25/18 09:28 Last Admin: 03/25/18 09:34 Dose: 0.5 mg Bumetanide (Bumex) 0.5 mg IVPUSH DAILY [facility] Stop: 03/28/18 09:01 Last Admin: 03/28/18 08:47 Dose: 0.5 mg Enoxaparin Sodium (Lovenox) 60 mg SUBCUT ONETIME ONE Stop: 03/23/18 21:01 Last Admin: 03/23/18 21:43 Dose: 60 mg Hydrochlorothiazide (Hydrochlorothiazide) 25 mg PO DAILY [facility] Last Admin: 03/26/18 08:24 Dose: 25 mg Hydromorphone HCl (Dilaudid) 0.25 mg IVPUSH Q2H PRN PRN Reason: Pain (severe 7-10) Sodium Chloride (Normal Saline) 500 mls @ 999 mls/hr IV .BOLUS ONE Stop: 03/23/18 16:30 Last Admin: 03/23/18 16:44 Dose: 999 mls/hr Sodium Chloride (Normal Saline) 100 mls @ 60 mls/hr IV ASDIRECTED [facility] Last Admin: 03/23/18 16:37 Dose: 60 mls/hr Magnesium Sulfate 2 gm/ Premix 50 mls @ 25 mls/hr IV ONETIME ONE Stop: 03/24/18 11:59 Last Admin: 03/24/18 10:31 Dose: 25 mls/hr Magnesium Sulfate 2 gm/ Premix 50 mls @ 25 mls/hr IV ONETIME ONE Stop: 03/25/18 12:59 Last Admin: 03/25/18 11:06 Dose: 25 mls/hr Iopamidol (Isovue-370 (76%)) 100 ml IVPUSH ONETIME ONE Stop: 03/23/18 16:20 Last Admin: 03/23/18 16:37 Dose: 80 ml Non-Formulary Medication (Aspirin/Caffeine [Anacin 400-32 Mg Tablet]) 2 tab PO DAILY [facility] Last Admin: 03/25/18 09:34 Dose: Not Given Potassium Chloride (Klor-Con M20) 40 meq PO Q4H [facility] Stop: 03/23/18 23:31 Last Admin: 03/23/18 22:30 Dose: 40 meq Potassium Chloride (Klor-Con M20) 40 meq PO ONETIME ONE Stop: 03/25/18 11:01 Last Admin: 03/25/18 11:06 Dose: 40 meq Sodium Chloride (Saline Flush) 10 ml FLUSH ONETIME ONE Stop: 03/23/18 16:20 Last Admin: 03/23/18 16:37 Dose: 10 ml - Exam Quality Assessment: Reports: DVT Prophylaxis General: Reports: Alert, Oriented, Cooperative HEENT: Reports: Pupils Equal, Pupils Reactive, EOMI, Mucous Membr. Moist/[place] Neck: Reports: Supple, Trachea Midline Lungs: Reports: Clear to Auscultation, Normal Respiratory Effort Cardiovascular: Reports: Regular Rate, Regular Rhythm GI/Abdominal Exam: Normal Bowel Sounds, Soft, Non-Tender, No Distention (Female) Exam: Deferred Rectal (Female) Exam: Deferred Back Exam: Reports: Normal Inspection Extremities: Normal Inspection, Normal Range of Motion, Non-Tender, No Pedal Edema Skin: Reports: Warm, Dry, Intact Neurological: Reports: No New Focal Deficit Psy/Mental Status: Reports: Alert, Normal Affect, Normal Mood Physical Findings Comments:: Patient appears well today. She is sitting up in her chair and appears comfortable and in no acute distress. She is no longer on supplemental oxygen and doing well with that. No abnormalities found upon physical exam. Gabriela West, MS-3. Dr. Fernandez has examined the patient and reviewed the note. <Twila Fernandez T - Last Filed: 03/28/18 18:21> Discharge Summary - Discharge Diagnosis/Problem(s) (1) Pulmonary embolism SNOMED Code(s): 24351496 ICD Code: I26.99 - OTHER PULMONARY EMBOLISM WITHOUT ACUTE COR PULMONALE Status: Acute (2) Heart failure SNOMED Code(s): 01707234 ICD Code: I50.9 - HEART FAILURE, UNSPECIFIED Status: Acute Qualifiers: Heart failure type: systolic Heart failure chronicity: acute Qualified Code(s): I50.21 - Acute systolic (congestive) heart failure (3) Pleural effusion SNOMED Code(s): 71695679 ICD Code: J90 - PLEURAL EFFUSION, NOT ELSEWHERE CLASSIFIED Status: Acute (4) HTN (hypertension) SNOMED Code(s): 46170559 ICD Code: I10 - ESSENTIAL (PRIMARY) HYPERTENSION Status: Resolved Qualifiers: Hypertension type: essential hypertension Qualified Code(s): I10 - Essential (primary) hypertension (5) Hypokalemia SNOMED Code(s): 89050045 ICD Code: E87.6 - HYPOKALEMIA Status: Resolved (6) Hypomagnesemia SNOMED Code(s): 015387514 ICD Code: E83.42 - HYPOMAGNESEMIA Status: Resolved (7) Elevated troponin SNOMED Code(s): 624182930, 780794879, 732246329 ICD Code: R74.8 - ABNORMAL LEVELS OF OTHER SERUM ENZYMES Status: Resolved (8) Sinus bradycardia SNOMED Code(s): 70529327 ICD Code: R00.1 - BRADYCARDIA, UNSPECIFIED Status: Resolved - Patient Summary/Data Consults: Consultations 03/23/18 19:07 Consult to Case Management [CONS] Routine Consult to Multimedia Manager [CONS] Routine Consult to Spiritual Care [CONS] Routine Respiratory Care Assess and Treatment [CONS] Routine - Discharge Summary/Plan Comment DC Time >30 min.: Yes (45 mins) Discharge Summary/Plan Comment: The patient was seen and examined at bedside in concert with the medical student. The discharge assessment and plans were discussed and agreed upon with me. Patient was essentially admitted for treatment of pulmonary embolism and at the same time bilateral pulmonary effusion. She was negative for lower extremity duplex ultrasound but chest CT scan showed a filling defect in the middle lobe segmental pulmonary artery. She was initially treated with lovenox but was switched to Eliquis after thoracentesis was performed. Patient tolerated the procedure well and post x-ray showed improved lungs and no pneumothorax. Her pleural fluid cytology came back without malignant cells. Her 2D echo showed normal EF but with valvular dysfunction and dilated cardiac chambers. Her hospital course was uncomplicated and the rest of her chronic medical illness remained stable during this admission. Patient was stable upon discharge. She was sent home with low dose baby aspirin along with eliquis. She was educated about heart failure and the steps she would take lee acute onset of symptoms. She was advised to comply with discharge instructions and follow up with PCP in 1 week. The patient and her family at bedside expressed understanding and in agreement with the plans as discussed above. All questions were answered. Dr. Joiner was called and updated about her discharge care plan. - Patient Data Vitals - Most Recent: Last Vital Signs Temp 37.2 C 03/28/18 12:31 Pulse 103 H 03/28/18 12:31 Resp 18 03/28/18 12:31 BP 138/39 L 03/28/18 12:31 Pulse Ox 95 03/28/18 12:31 I&O - Last 24 hours: Intake & Output 03/28/18 03/28/18 03/28/18 06:59 14:59 22:59 Intake Total 300 420 Output Total 650 Balance -350 420 Lab Results - Last 24 hrs: Laboratory Results - last 24 hr 03/28/18 03/28/18 Range/Units 06:25 06:25 WBC 9.00 (3.98-10.04) K/mm3 RBC 4.23 (3.98-5.22) M/mm3 Hgb 12.9 (11.2-15.7) gm/L Hct 38.7 (34.1-44.9) % MCV 91.5 (79.4-94.8) fl MCH 30.5 (25.6-32.2) pg MCHC 33.3 (32.2-35.5) g/dl RDW Std Deviation 51.4 H (36.4-46.3) fL Plt Count 170 L (182-369) K/mm3 MPV 9.6 (9.4-12.3) fl Neut % (Auto) 73.3 H (34.0-71.1) % Lymph % (Auto) 14.6 L (19.3-51.7) % Beckham % (Auto) 11.1 (4.7-12.5) % Eos % (Auto) 0.6 L (0.7-5.8) Baso % (Auto) 0.2 (0.1-1.2) % Neut # (Auto) 6.60 H (1.56-6.13) K/mm3 Lymph # (Auto) 1.31 (1.18-3.74) K/mm3 [place] # (Auto) 1.00 H (0.24-0.36) K/mm3 Eos # (Auto) 0.05 (0.04-0.36) K/mm3 Baso # (Auto) 0.02 (0.01-0.08) K/mm3 NT-Pro-B Natriuret Pep 1660 H (0-450) pg/mL NEHA Results - Last 24 hrs: Microbiology 03/24/18 10:30 Gram Stain - Final Thoracentesis Fluid - Right Body Fluid Culture - Preliminary NO GROWTH AFTER 4 DAYS 03/24/18 10:30 Acid Fast Bacilli Smear - Final Thoracentesis Fluid - Right Med Orders - Current: Current Medications Discontinued Medications Acetaminophen (Tylenol) 650 mg PO Q4H PRN PRN Reason: Pain (Mild 1-3)/fever Hydrocodone Bitart/Acetaminophen ([place] 325-5 Mg) 1 tab PO Q4H PRN PRN Reason: Pain (moderate 4-6) Last Admin: 03/28/18 10:44 Dose: 1 tab Albuterol/Ipratropium (Duoneb 3.0-0.5 Mg/3 Ml) 3 ml NEB Q4H PRN PRN Reason: Shortness Of Breath/wheezing Amlodipine Besylate (Norvasc) 10 mg PO DAILY [facility] Last Admin: 03/28/18 08:46 Dose: 10 mg Apixaban (Eliquis) 10 mg PO BID [facility] Stop: 03/30/18 09:01 Apixaban (Eliquis) 5 mg PO BID [facility] Apixaban (Eliquis) 10 mg PO BID [facility] Stop: 03/31/18 09:01 Apixaban (Eliquis) 10 mg PO BID [facility] Stop: 03/30/18 21:01 Last Admin: 03/28/18 08:46 Dose: 10 mg Apixaban (Eliquis) 5 mg PO BID [facility] Bisacodyl (Dulcolax) 5 mg PO DAILY PRN PRN Reason: Constipation Bumetanide (Bumex) 0.5 mg IVPUSH ONETIME ONE Stop: 03/25/18 09:28 Last Admin: 03/25/18 09:34 Dose: 0.5 mg Bumetanide (Bumex) 0.5 mg IVPUSH DAILY [facility] Stop: 03/28/18 09:01 Last Admin: 03/28/18 08:47 Dose: 0.5 mg Docusate Sodium (Colace) 100 mg PO BID PRN PRN Reason: Constipation Last Admin: 03/26/18 16:47 Dose: 100 mg Enoxaparin Sodium (Lovenox) 60 mg SUBCUT ONETIME ONE Stop: 03/23/18 21:01 Last Admin: 03/23/18 21:43 Dose: 60 mg Hydralazine HCl (Apresoline) 20 mg IVPUSH Q4H PRN PRN Reason: Hypertension Hydrochlorothiazide (Hydrochlorothiazide) 25 mg PO DAILY [facility] Last Admin: 03/26/18 08:24 Dose: 25 mg Hydrochlorothiazide (Hydrochlorothiazide) 12.5 mg PO BIDDIURETIC [facility] PRN Reason: Pain Last Admin: 03/28/18 06:36 Dose: 12.5 mg Hydromorphone HCl (Dilaudid) 0.25 mg IVPUSH Q2H PRN PRN Reason: Pain (severe 7-10) Hydromorphone HCl (Dilaudid) 0.25 mg IVPUSH Q2H PRN PRN Reason: Pain (severe 7-10) Last Admin: 03/24/18 09:43 Dose: 0.25 mg Sodium Chloride (Normal Saline) 500 mls @ 999 mls/hr IV .BOLUS ONE Stop: 03/23/18 16:30 Last Admin: 03/23/18 16:44 Dose: 999 mls/hr Sodium Chloride (Normal Saline) 100 mls @ 60 mls/hr IV ASDIRECTED [facility] Last Admin: 03/23/18 16:37 Dose: 60 mls/hr Promethazine HCl 6.25 mg/ (Sodium Chloride) 50.25 mls @ 100 mls/hr IV Q6H PRN PRN Reason: Nausea/Vomiting Magnesium Sulfate 2 gm/ Premix 50 mls @ 25 mls/hr IV ONETIME ONE Stop: 03/24/18 11:59 Last Admin: 03/24/18 10:31 Dose: 25 mls/hr Magnesium Sulfate 2 gm/ Premix 50 mls @ 25 mls/hr IV ONETIME ONE Stop: 03/25/18 12:59 Last Admin: 03/25/18 11:06 Dose: 25 mls/hr Iopamidol (Isovue-370 (76%)) 100 ml IVPUSH ONETIME ONE Stop: 03/23/18 16:20 Last Admin: 03/23/18 16:37 Dose: 80 ml Lorazepam (Ativan) 1 mg PO DAILY PRN PRN Reason: Anxiety Last Admin: 03/27/18 21:35 Dose: 1 mg Lorazepam (Ativan) 2 mg IVPUSH Q4H PRN PRN Reason: Seizures Lorazepam (Ativan) 0.25 mg IV Q6H PRN PRN Reason: Anxiety Last Admin: 03/24/18 09:42 Dose: 0.25 mg Losartan Potassium (Cozaar) 100 mg PO DAILY [facility] Last Admin: 03/28/18 08:46 Dose: 100 mg Magnesium Sulfate (Pharmacy To Dose - Magnesium Replacement) 0 dose .XX ASDIRECTED PRN PRN Reason: RX TO WATCH MAG Metoprolol Succinate (Toprol Xl) 50 mg PO DAILY [facility] Last Admin: 03/28/18 08:47 Dose: 50 mg Metoprolol Tartrate (Lopressor) 5 mg IVPUSH Q4H PRN PRN Reason: Tachycardia Mupirocin (Bactroban Oint) 0 gm TOP QID [facility] Last Admin: 03/28/18 08:47 Dose: 1 applic Non-Formulary Medication (Aspirin/Caffeine [Anacin 400-32 Mg Tablet]) 2 tab PO DAILY [facility] Last Admin: 03/25/18 09:34 Dose: Not Given Ondansetron HCl (Zofran) 4 mg IV Q6H PRN PRN Reason: Nausea/Vomiting Polyethylene Glycol (Miralax) 17 gm PO DAILY PRN PRN Reason: Constipation Last Admin: 03/27/18 08:53 Dose: 17 gm Potassium Chloride (Klor-Con 10) 10 meq PO DAILY [facility] Last Admin: 03/28/18 08:46 Dose: 10 meq Potassium Chloride (Pharmacy To Dose - Potassium Replacement) 0 dose .XX ASDIRECTED PRN PRN Reason: RX TO WATCH K Potassium Chloride (Klor-Con M20) 40 meq PO Q4H [facility] Stop: 03/23/18 23:31 Last Admin: 03/23/18 22:30 Dose: 40 meq Potassium Chloride (Klor-Con M20) 40 meq PO ONETIME ONE Stop: 03/25/18 11:01 Last Admin: 03/25/18 11:06 Dose: 40 meq Ropinirole HCl (Requip) 0.5 mg PO BEDTIME [facility] Last Admin: 03/27/18 21:35 Dose: 0.5 mg Rosuvastatin Calcium (Crestor) 5 mg PO DAILY [facility] Last Admin: 03/28/18 08:46 Dose: 5 mg Senna/Docusate Sodium (Senna Plus) 1 tab PO BID PRN PRN Reason: Constipation Sodium Chloride (Saline Flush) 10 ml FLUSH ASDIRECTED PRN PRN Reason: Keep Vein Open Last Admin: 03/23/18 14:34 Dose: 10 ml Sodium Chloride (Saline Flush) 10 ml FLUSH ONETIME ONE Stop: 03/23/18 16:20 Last Admin: 03/23/18 16:37 Dose: 10 ml Temazepam (Restoril) 7.5 mg PO BEDTIME PRN PRN Reason: Sleep Vit A/Vit C/Vit E/Selen/Cu/Zn/Lutei (Icaps Mv) 1 tab PO DAILY [facility] Last Admin: 03/28/18 08:46 Dose: 1 tab
[2018-03-28 12:36] VITALS: BP 138/39
[2018-03-31] MEDS ORDERED: Apixaban 5 MG Tab PO SCH ×2 (09:00)
== END 2018-03-28 14:40 | disposition home or self-care (01) | DRG 175 ==
LOC: JD.ED 13:08 → JD.MS 18:22
PROVIDERS: ADMIT Internal Medicine; ATTEND Internal Medicine
PROC: 0W993ZZ Drainage of Right Pleural Cavity, Percutaneous Approach (ICD-10-PCS; principal; 2018-03-24)
DX: I26.99 Other pulmonary embolism without acute cor pulmonale (principal); J44.9 Chronic obstructive pulmonary disease, unspecified; I50.21 Acute systolic (congestive) heart failure; J91.8 Pleural effusion in other conditions classified elsewhere; I10 Essential (primary) hypertension; R09.02 Hypoxemia; E78.00 Pure hypercholesterolemia, unspecified; F41.9 Anxiety disorder, unspecified; E78.5 Hyperlipidemia, unspecified; J43.9 Emphysema, unspecified; I11.0 Hypertensive heart disease with heart failure; Z66 Do not resuscitate; I50.811 Acute right heart failure; R06.00 Dyspnea, unspecified; R42 Dizziness and giddiness; R06.02 Shortness of breath; M25.511 Pain in right shoulder; R07.9 Chest pain, unspecified; M54.2 Cervicalgia; E87.6 Hypokalemia; E83.42 Hypomagnesemia; R00.1 Bradycardia, unspecified; E55.9 Vitamin D deficiency, unspecified; R74.8 Abnormal levels of other serum enzymes; Z85.828 Personal history of other malignant neoplasm of skin; Z87.891 Personal history of nicotine dependence; Z85.51 Personal history of malignant neoplasm of bladder; Z88.1 Allergy status to other antibiotic agents; Z95.828 Presence of other vascular implants and grafts; Z88.5 Allergy status to narcotic agent; Z79.899 Other long term (current) drug therapy; Z79.82 Long term (current) use of aspirin
CPT/HCPCS: 36415; 71045; 71275; 80053; 83880; 84484; 85025; 85379; 85610; 86140; 93005; 93971; 96360; 99285; J7030; J7040; J7050 ×2; Q9967; 76942; 80048; 82306; 82945; 83615; 83735; 83986; 84157; 84439; 84443; 87070; 87205; 87220; 89050; 93010; 93306; 94761; A9270-GY; C1729; J1170; J1650; J2060; J3475; J3490

== ENCOUNTER 2018-04-01 10:25 | Emergency (ER) | payer MEDICARE, BC ==
--- NOTE | 2018-04-01 10:57 | EDM.PDOC ---
ED HPI GENERAL MEDICAL PROBLEM - General Chief Complaint: Gastrointestinal Problem Stated Complaint: GI BLEED Time Seen by Provider: 04/01/18 10:37 Source of Information: Reports: Patient, Family History Limitations: Reports: No Limitations - History of Present Illness INITIAL COMMENTS - FREE TEXT/NARRATIVE: 87-year-old female recently diagnosed with a pulmonary embolism and anticoagulated on Eliquis presenting with dark tarry stools as well as presyncope. Patient has been having dark tarry stools nearly continuously since yesterday. Today she felt faint and lightheaded like she was going to pass out and fell back into the couch locally. She did not lose consciousness and no associated chest pain or shortness of breath. Reports several episodes of hematemesis. Denies any hematuria. She does have a history of bladder cancer as well as skin cancer. Has never had a colonoscopy performed. Medical record review reveals she has HTN, HLD, long hx of smoking, and EF 50% with mild diastolic dysfunction noted on 03/26/18. Abdomen Pain Score (Numeric/FACES): 6 - Related Data Allergies Allergy/AdvReac Type Severity Reaction Status Date / Time Cephalosporins Allergy Intermediate Hives Verified 04/01/18 10:35 cefuroxime axetil Allergy Cannot Verified 04/01/18 10:35 [From Ceftin] Remember oxycodone [Oxycodone] AdvReac Nausea and Verified 04/01/18 10:35 Vomiting Home Meds: Home Meds LORazepam 1 mg PO DAILY PRN 03/23/18 [History] Lutein/Minerals/Vit A,C & E [Ocuvite] 1 tab PO DAILY 03/23/18 [History] Potassium Chloride [Klor-Con Sprinkle] 10 meq PO DAILY 03/23/18 [History] Rosuvastatin [Crestor] 5 mg PO DAILY 03/23/18 [History] rOPINIRole HCl [Requip] 0.5 mg PO BEDTIME 03/23/18 [History] Doxycycline [Vibramycin] 1 tab PO BID 03/24/18 [History] Mupirocin Oint [Bactroban Oint] 1 applic TOP QID 03/24/18 [History] Apixaban [Eliquis] 5 mg PO ASDIRECTED #60 tablet 03/28/18 [Rx] Aspirin 81 mg PO BEDTIME #30 tab.chew 03/28/18 [Rx] Furosemide [Lasix] 20 mg PO ASDIRECTED PRN #90 tablet 03/28/18 [Rx] Losartan/Hydrochlorothiazide [Hyzaar 100-25 Tablet] 1 each PO DAILY #0 03/28/18 [Rx] Metoprolol Succinate [Toprol Xl] 50 mg PO DAILY #0 03/28/18 [Rx] amLODIPine Besylate [Norvasc] 10 mg PO DAILY #0 03/28/18 [Rx] Past Medical History HEENT History: Reports: Hard of Hearing, Impaired Vision Cardiovascular History: Reports: High Cholesterol, Hypertension, Other (See Below) Other Cardiovascular History: carotoid stent right side Respiratory History: Reports: PE Psychiatric History: Reports: Anxiety Oncologic (Cancer) History: Reports: Bladder, Other (See Below) Other Oncologic History: skin cancer to the foot; also bladder cancer since 2014 - Infectious Disease History Infectious Disease History: Reports: Measles - Past Surgical History HEENT Surgical History: Reports: Cataract Surgery, Tonsillectomy Female Surgical History: Reports: Other (See Below) Other Female Surgeries/Procedures: removal of tumors in bladder x 6 Musculoskeletal Surgical History: Reports: None Dermatological Surgical History: Reports: Skin Biopsy Social & Family History - Family History Family Medical History: Noncontributory - Tobacco Use Smoking Status *Q: Never Smoker - Caffeine Use Caffeine Use: Reports: Coffee, Tea - Recreational Drug Use Recreational Drug Use: No ED ROS GENERAL - Review of Systems Review Of Systems: See Below Constitutional: Reports: Weakness HEENT: Reports: No Symptoms Respiratory: Reports: No Symptoms Cardiovascular: Reports: Lightheadedness. Denies: Chest Pain Endocrine: Reports: No Symptoms GI/Abdominal: Reports: Abdominal Pain : Reports: No Symptoms Musculoskeletal: Reports: No Symptoms Neurological: Reports: Dizziness Psychiatric: Reports: No Symptoms ED EXAM, GI/ABD - Physical Exam Exam: See Below Exam Limited By: No Limitations General Appearance: Alert, No Apparent Distress Nose: Normal Inspection Throat/Mouth: Normal Inspection Head: Atraumatic, Normocephalic Respiratory/Chest: No Respiratory Distress, Lungs Clear, Normal Breath Sounds Cardiovascular: Normal Peripheral Pulses, Regular Rate, Rhythm GI/Abdominal Exam: Soft, Other (Abdomen is soft and diffusely tender to palpation but no signs of peritonitis no rebound guarding) Back Exam: Normal Inspection, Full Range of Motion, Other (No tenderness to palpation of the cervical thoracic or lumbar spines) Extremities: Normal Inspection, Normal Range of Motion, Other (No evidence of trauma to the extremities) Neurological: Alert, Oriented, CN II-XII Intact Course - Vital Signs Last Recorded V/S: Last Vital Signs Temp 36.6 C 04/01/18 10:35 Pulse 110 H 04/01/18 10:35 Resp 16 04/01/18 10:35 BP 113/61 04/01/18 10:35 Pulse Ox 100 04/01/18 10:35 - Orders/Labs/Meds Orders: Active Orders 24 hr Category Date Time Status PACKED CELLS [RED BLOOD CELLS LP] [BBK] Stat Lab 04/01/18 11:03 Received TYPE AND SCREEN [BBK] Stat Lab 04/01/18 11:03 Received Transfuse Red Blood Cells [COMM] Stat Oth 04/01/18 11:20 Ordered Labs: Laboratory Tests 04/01/18 04/01/18 04/01/18 Range/Units 11:03 11:03 11:03 WBC 7.94 (3.98-10.04) K/mm3 RBC 2.56 L (3.98-5.22) M/mm3 Hgb 7.7 L (11.2-15.7) gm/L Hct 23.3 L (34.1-44.9) % MCV 91.0 (79.4-94.8) fl MCH 30.1 (25.6-32.2) pg MCHC 33.0 (32.2-35.5) g/dl RDW Std Deviation 46.6 H (36.4-46.3) fL Plt Count 284 (182-369) K/mm3 MPV 10.0 (9.4-12.3) fl Neut % (Auto) 76.8 H (34.0-71.1) % Lymph % (Auto) 15.7 L (19.3-51.7) % Benzie % (Auto) 6.5 (4.7-12.5) % Eos % (Auto) 0.1 L (0.7-5.8) Baso % (Auto) 0.5 (0.1-1.2) % Neut # (Auto) 6.09 (1.56-6.13) K/mm3 Lymph # (Auto) 1.25 (1.18-3.74) K/mm3 Benzie # (Auto) 0.52 H (0.24-0.36) K/mm3 Eos # (Auto) 0.01 L (0.04-0.36) K/mm3 Baso # (Auto) 0.04 (0.01-0.08) K/mm3 Manual Slide Review Normal smear PT 13.4 H (9.5-12.1) SECONDS INR 1.23 APTT 26 (24-31) SECONDS Sodium 141 (136-145) mEq/L Potassium 3.4 L (3.5-5.1) mEq/L Chloride 104 (98-107) mEq/L Carbon Dioxide 24 (21-32) mEq/L Anion Gap 16.4 H (5-15) BUN 85 H (7-18) mg/dL Creatinine 1.4 H (0.55-1.02) mg/dL Est Cr Clr Drug Dosing 20.96 mL/min Estimated GFR (MDRD) 35 (>60) mL/min BUN/Creatinine Ratio 60.7 H (14-18) Glucose 124 H (83-115) mg/dL Calcium 8.6 (8.5-10.1) mg/dL Total Bilirubin 0.5 (0.2-1.0) mg/dL AST 24 (15-37) U/L ALT 31 (14-59) U/L Alkaline Phosphatase 89 (46-116) U/L Total Protein 5.5 L (6.4-8.2) g/dl Albumin 2.3 L (3.4-5.0) g/dl Globulin 3.2 gm/dL Albumin/Globulin Ratio 0.7 L (1-2) - Re-Assessments/Exams Free Text/Narrative Re-Assessment/Exam: 04/01/18 10:56 Differential diagnosis: Lower GI bleed, upper GI bleed, malignancy, arteriovenous malformation 87-year-old female presenting with dark tarry stools and lightheadedness. On initial dilation patient was mildly tachycardic 106 but normotensive. She otherwise appeared to be in no apparent distress. Physical exam notable only for some mild diffuse tenderness to palpation of the abdomen. Plan right now so obtain labs assess the patient's anemia transfuse if needed and then arrange for transfer for endoscopy to be performed. We'll hold anticoagulation for now. Patient last took a dose of eliquis last night. 04/01/18 11:46 Hgb 7.7 - was 12.7 on 03/28. Ordered 1 unit of pRBCs to be transfused. Patient remains stable with no hematochezia, hematemesis or even further melenic bowel movements while in the ED. Spoke with hospitalist Dr. Whittington at [facility] who accepted the patient for transfer. Departure - Departure Time of Disposition: 11:47 Disposition: DC/Tfer to [facility] 02 Preliminary Cause of *Q: Cardiac Arrest Condition: Fair Clinical Impression: GI bleed Qualifiers: GI bleed type/associated pathology: melena Qualified Code(s): K92.1 - Melena Anemia Qualifiers: Other causes of anemia: acute posthemorrhagic - Discharge Information *PRESCRIPTION DRUG MONITORING PROGRAM REVIEWED*: No *COPY OF PRESCRIPTION DRUG MONITORING REPORT IN PATIENT OSMANI: No Referrals: Cy Joiner MD [Primary Care Provider] - Forms: Interfacility Transfer EMTALA - My Orders Last 24 Hours: My Active Orders 04/01/18 11:03 PACKED CELLS [RED BLOOD CELLS LP] [BBK] Stat TYPE AND SCREEN [BBK] Stat 04/01/18 11:20 Transfuse Red Blood Cells [COMM] Stat - Assessment/Plan Last 24 Hours: My Active Orders 04/01/18 11:03 PACKED CELLS [RED BLOOD CELLS LP] [BBK] Stat TYPE AND SCREEN [BBK] Stat 04/01/18 11:20 Transfuse Red Blood Cells [COMM] Stat
[2018-04-01 12:39] VITALS: BP 105/62
== END 2018-04-01 12:45 ==
LOC: JD.ED 10:25
DX: K92.1 Melena (principal); D50.0 Iron deficiency anemia secondary to blood loss (chronic)
CPT/HCPCS: 36415; 36430; 80053; 85025; 85610; 85730; 86850; 86900; 86901; 86922; 99285; P9016